=== PATIENT | female | born 1935 | race Caucasian/White ===

== ENCOUNTER 2020-10-06 20:12 | Observation (INO) | payer MEDICARE, OTHER, SELFPAY ==
--- NOTE | 2020-10-06 20:04 | ECG_ITS ---
APPROVED REPORT Exam: Resting ECG HR:52 bpm ECG Measurements Heart Rate 52 AXES MI 152 P 67 QRSd 90 QRS 23 QT 434 T 4 QTc 403 Conclusion Sinus bradycardia Nonspecific ST and T wave abnormality Abnormal ECG Electronically signed by : Ryan Allison MD 10/07/2020 08:57:32
[2020-10-06 20:24] VITALS: BP 171/77; PULSE 58; RESP 14; TEMP 36.3; O2SAT 94; BMI 25.8
--- NOTE | 2020-10-06 20:35 | PC.NURSE ---
C-Collar placed on arrival, Pt fell at home c/o lower back pain and has slight AMS
--- NOTE | 2020-10-06 20:37 | CT_ITS ---
PROCEDURE INFORMATION: Exam: CT Lumbar Spine Without Contrast Exam date and time: 10/06/2020 8:37 PM Age: 85 years old Clinical indication: Injury or trauma; Fall; Blunt trauma (contusions or hematomas); Injury date: 10/06/2020; Patient HX: Fell AMS back pain TECHNIQUE: Imaging protocol: Computed tomography images of the lumbar spine without contrast. Radiation optimization: All CT scans at this facility use at least one of these dose optimization techniques: automated exposure control; mA and/or kV adjustment per patient size (includes targeted exams where dose is matched to clinical indication); or iterative reconstruction. COMPARISON: No relevant prior studies available. FINDINGS: Vertebrae: Acute compression fracture involving the anterior superior endplate of L4 with mild height loss. Vertebral body height measures approximately 20 mm compared to 20/5 at the adjacent level. Stomach and bowel: Diverticulosis coli without evidence for diverticulitis. Soft tissues: Unremarkable. IMPRESSION: Acute compression fracture involving L4 with mild height loss.
--- NOTE | 2020-10-06 20:37 | CT_ITS ---
PROCEDURE INFORMATION: Exam: CT Cervical Spine Without Contrast Exam date and time: 10/06/2020 8:37 PM Age: 85 years old Clinical indication: Injury or trauma; Fall; Blunt trauma; Injury date: 10/06/2020; Patient HX: Fell AMS TECHNIQUE: Imaging protocol: Computed tomography images of the cervical spine without contrast. Radiation optimization: All CT scans at this facility use at least one of these dose optimization techniques: automated exposure control; mA and/or kV adjustment per patient size (includes targeted exams where dose is matched to clinical indication); or iterative reconstruction. COMPARISON: CT HEAD/BRAIN WO CON 10/06/2020 9:33 PM FINDINGS: Bones/joints: The facet joints demonstrate mild degenerative hypertrophy and sclerosis. Bones are osteopenic. There is no evidence of acute fracture. Discs/Spinal canal/Neural foramina: The cervical spine demonstrates mild degenerative changes at multiple levels. Disc space narrowing and bilateral neural foraminal narrowing noted at C5-C6 and C6-C7. Lungs: Lung apices are normal. Soft tissues: There are no soft tissue masses or fluid collections. IMPRESSION: 1. The cervical spine demonstrates mild degenerative changes at multiple levels. 2. No evidence of acute fracture.
--- NOTE | 2020-10-06 20:37 | CT_ITS ---
PROCEDURE INFORMATION: Exam: CT Head Without Contrast Exam date and time: 10/06/2020 8:37 PM Age: 85 years old Clinical indication: Injury or trauma; Fall; Blunt trauma (contusions or hematomas); Without loss of consciousness; Injury date: 10/06/2020; Injury details: Fell; Additional info: AMS TECHNIQUE: Imaging protocol: Computed tomography of the head without contrast. Radiation optimization: All CT scans at this facility use at least one of these dose optimization techniques: automated exposure control; mA and/or kV adjustment per patient size (includes targeted exams where dose is matched to clinical indication); or iterative reconstruction. COMPARISON: No relevant prior studies available. FINDINGS: Brain: Age-related atrophy and chronic white matter ischemic changes, with no evidence of an acute intracranial abnormality. No hemorrhage, mass effect or midline shift. Cerebral ventricles: No ventriculomegaly. Paranasal sinuses: Visualized sinuses are unremarkable. No fluid levels. Mastoid air cells: Visualized mastoid air cells are well aerated. Vasculature: The vasculature demonstrates diffuse mild atherosclerotic calcification. Bones/joints: No acute fracture. Soft tissues: No acute changes IMPRESSION: 1. Age-related atrophy and chronic white matter ischemic changes, with no evidence of an acute intracranial abnormality. 2. No hemorrhage, mass effect or midline shift.
--- NOTE | 2020-10-06 20:40 | XR_ITS ---
PROCEDURE INFORMATION: Exam: XR Chest Exam date and time: 10/06/2020 8:40 PM Age: 85 years old Clinical indication: Injury or trauma; Fall; Blunt trauma (contusions or hematomas); Injury date: 10/06/2020; Injury details: Fell TECHNIQUE: Imaging protocol: XR of the chest. Views: 4 or more views. COMPARISON: CT CERVICAL SPINE WO CON 10/06/2020 9:37 PM FINDINGS: Lungs: Streaky pulmonary opacities which are likely atelectatic. Pleural spaces: No pleural effusion. No pneumothorax. Heart/Mediastinum: Unremarkable. No cardiomegaly. Bones/joints: Degenerative changes of the shoulders. IMPRESSION: No acute cardiopulmonary process.
--- NOTE | 2020-10-06 20:40 | XR_ITS ---
PROCEDURE INFORMATION: Exam: XR Pelvis Exam date and time: 10/06/2020 8:40 PM Age: 85 years old Clinical indication: Injury or trauma; Fall; Blunt trauma (contusions or hematomas); Bilateral; Pelvic region; Injury date: 10/06/2020; Injury details: Fell backpain TECHNIQUE: Imaging protocol: XR pelvis. Views: 1 or 2 view. COMPARISON: CT LUMBAR SPINE WO CON 10/06/2020 9:40 PM FINDINGS: Bones/joints: Minimal height loss at L4. Bony pelvis is intact. No dislocation. Soft tissues: Unremarkable. IMPRESSION: No acute pelvic abnormality. CT lumbar spine dictated separately.
[2020-10-06 20:44] LABS: Microscopic, Urine URINE MICROSCOPIC (MICROSCOPIC)
[2020-10-06 20:46] LABS: Appearance,Urine CLEAR (Clear); Bilirubin,Urine Negative (Negative); Blood, Urine TRACE-I (Negative); Color,Urine YELLOW (Yellow); Glucose,Urine (UA) Negative (Negative); Ketones,Urine TRACE (Negative); Leukocyte Esterase,Urine Negative (Negative); Nitrate,Urine Negative (Negative); Protein,Urine TRACE (Negative); Urobilinogen,Urine 0.2 EU/dl (0.2)
[2020-10-06 20:53] LABS: Chloride 98 mmol/L (98-107); Sodium 141 mmol/L (136-145)
--- NOTE | 2020-10-06 20:53 | HMH.EDGENADL ---
ED Disposition Clinical Impression: Weakness, Lumbar compression fracture, Hypokalemia Disposition: Admitted As Inpatient Condition on Discharge: Good Instructions: DI for Altered Mental Status Referrals: Provider,Referral, [Referring] - - Critical Care Critical Care Time: No Attestation: On 10/06/20, the high probability of a clinically significant, sudden or life threatening deterioration of the following system(s) required my full and direct attention, intervention and personal management. The time I documented below is in addition to time spent performing reported procedures but includes the following listed in this critical care notation. Medical Decision Making - Medical Records MR Comment: L4 compression fracture which is acute. Patient has hypokalemia with potassium 2.9. Call Dr. Quach who is on-call for Dr. Dhillon who is on-call for Dr. Wilkins and he accepted the patient. - Rd Inquiry Pt receiving controlled substance: No Rd was queried for this patient: No Vital Signs: 10/06/20 20:24 Temperature 97.4 F L Temperature Source Rectal Pulse Rate [Right] 58 L Respiratory Rate 14 Blood Pressure [Right Arm] 171/77 H Blood Pressure Mean [Right Arm] 108 Blood Pressure Source [Right Arm] Automatic Cuff Blood Pressure Position [Right Arm] Supine 02 Sat by Pulse Oximetry 94 L Oxygen Delivery Method Room Air - Lab Data Lab Results 10/06/20 20:15: WBC 9.2, RBC 5.14, Hgb 15.2, Hct 44.9, MCV 87.5, MCH 29.5, MCHC 33.7, RDW 12.8, Plt Count 295, MPV 9.8, Neut % (Auto) 82.7 H, Lymph % (Auto) 10.1, Douglas % (Auto) 5.7, Eos % (Auto) 0.9, Baso % (Auto) 0.6, Neut # (Auto) 7.6, Lymph # (Auto) 0.9, Douglas # (Auto) 0.5, Eos # (Auto) 0.1, Baso # (Auto) 0.1 10/06/20 20:15: Sodium 141, Potassium 2.9 L*, Chloride 98, Carbon Dioxide 33 H, Anion Gap 12.9, BUN 15, Creatinine 0.80, Estimated Creat Clear 47, Estimated GFR 68, Est GFR ( Amer) 82, Glucose 141 H, Calcium 10.7 H, Total Bilirubin 1.0, AST 40 H, ALT 19, Alkaline Phosphatase 109, Total Protein 7.3, Albumin 4.2, Globulin 3.1, Albumin/Globulin Ratio 1.4 10/06/20 20:15: Urine Color Yellow, Urine Appearance Clear, Urine pH 6.0, Ur Specific [place] 1.020, Urine Protein Trace, Urine Glucose (UA) Negative, Urine Ketones Trace, Urine Blood Trace-i, Urine Nitrate Negative, Urine Bilirubin Negative, Urine Urobilinogen 0.2, Ur Leukocyte Esterase Negative, Urine RBC Occasional, Urine WBC 20-50, Ur Squamous Epith Cells 3-5, Urine Bacteria None 10/06/20 21:05: Total Creatine Kinase 25 L Result diagrams: 10/06/20 20:15 10/06/20 20:15 Orders (Tests/Meds): ORDERS Category Date Time Status Rapid PCR Covid and Flu A/B Stat Lab 10/06/20 22:33 Received Urine Culture Stat Micro 10/06/20 20:15 Received General Adult HPI - General Chief complaint: Altered Mental Status Stated complaint: [id number] back pain,dizzines,vomiting Time Seen by Provider: 10/06/20 20:53 Mode of Arrival: EMS Limitations: No Limitations Description of Symptoms (Recalled from ER Triage Doc. by RN): Pt was found down at home last known normal was 1100, Pt lives alone, she is able to tell us her name and where she is, but unable to answer any other question. Pt moves all extremities without drift PERRL 2mm. Pt only has a complaint of lower back pain. - History of Present Illness HPI narrative: Patient is 85-year-old female who lives by herself. She fell and complaining of low back pain. The EMS was called and she she was brought to the emergency room. There was no head bruises. She denied any headache. She denied any chest pain or abdominal pain. Pain of back pain this week and she called Dr. barrera primary care physician 3 days ago who prescribed muscle relaxant for her lower back pain. According to her son she has been in bed and has limited mobility due to increased low back pain. Today she was trying to reach her walker and she fell and she was laying on the floor. Her friend came
[2020-10-06 20:54] LABS: Basophils # 0.1 K/mm3 (0-0.2); Basophils % 0.6 % (0.1-2.0); Eosinophils # 0.1 K/mm3 (0.0-0.4); Eosinophils % 0.9 % (0.1-12.0); Hematocrit 44.9 % (37.0-47.0); Hemoglobin 15.2 g/dL (12.2-16.2); Lymphocytes # 0.9 K/mm3 (0.7-4.5); Lymphocytes % 10.1 % (10-50); Mean Corpuscular HGB Conc 33.7 g/dL (31.8-35.4); Mean Corpuscular Hemoglobin 29.5 pg (27.0-31.2); Mean Corpuscular Volume 87.5 fl (81-99); Mean Platelet Volume 9.8 fl (7.4-10.4); Monocytes # 0.5 K/mm3 (0.1-1.0); Monocytes % 5.7 % (1.7-9.3); Neutrophils # 7.6 K/mm3 (1.8-7.8); Neutrophils % 82.7 % (37.0-80.0); Platelet Count 295 K/mm3 (142-424); Red Blood Count 5.14 M/mm3 (4.20-5.40); Red Cell Distribution Width 12.8 % (11.5-17.5); White Blood Count 9.2 K/mm3 (4.8-10.8)
[2020-10-06 20:55] LABS: Blood Urea Nitrogen 15 mg/dl (7-17); Creatinine Clearance Estimated 47 mL/min (50-200); Estimated Glomerular Filt Rate 68 ml/min (>60); GFR (African American) 82 ML/MIN (>60); Potassium 2.9 mmoL/L (3.5-5.1)
[2020-10-06 20:56] LABS: Alanine Aminotransferase 19 U/L (12-78); Albumin Level 4.2 g/dl (3.5-5.0); Albumin/Globulin Ratio 1.4 (1.1-1.8); Alkaline Phosphatase 109 U/L (38-126); Anion Gap 12.9 mEq/L (5-15); Aspartate Amino Transferase 40 U/L (14-36); Calcium 10.7 mg/dl (8.4-10.2); Carbon Dioxide 33 mmol/L (22.0-30.0); Globulin 3.1 g/dL (1.3-3.2); Glucose 141 mg/dl (74-100); Total Protein,Serum 7.3 g/dl (6.3-8.2)
[2020-10-06 21:03] VITALS: BP 125/75; PULSE 55; RESP 14; O2SAT 95
[2020-10-06 21:08] LABS: RBC,Urine Occasional #/hpf (0-3); WBC,Urine 20-50 #/hpf (0-3)
[2020-10-06 21:27] LABS: Creatine Kinase 25 U/L (30-135)
[2020-10-06 22:30] VITALS: BP 146/61; PULSE 57; RESP 16; O2SAT 94
[2020-10-06 22:41] LABS: Coronavirus 19, PCR Not Detected (NotDetected); Influenza A, PCR Not Detected (NotDetected); Influenza B, PCR Not Detected (NotDetected)
[2020-10-06 23:00] VITALS: BP 147/68; PULSE 56; O2SAT 95
[2020-10-06 23:30] VITALS: BP 137/61; PULSE 53; RESP 16; O2SAT 96
[2020-10-07 00:13] VITALS: BP 129/56; PULSE 59; RESP 16; TEMP 36.3; O2SAT 96
[2020-10-07 00:20] VITALS: BMI 24.5
--- NOTE | 2020-10-07 00:20 | PC.NURSE ---
Patient arrived to floor via stretcher.
--- NOTE | 2020-10-07 00:24 | PC.NURSE ---
Pasword set by son is [phone]
--- NOTE | 2020-10-07 02:32 | PC.NURSE ---
Patient has altered mental status, attempted to call patients son to verify code status but they did not answer.
--- NOTE | 2020-10-07 02:56 | PC.NURSE ---
Patient was a new admit. Patient is alert to self and where she is. no complaints of pain. Patient has chavez and has good urine output. vss. no further concerns
[2020-10-07 04:00] VITALS: BMI 25.6
[2020-10-07 04:10] VITALS: BP 100/60
[2020-10-07 06:47] VITALS: BP 100/60; PULSE 63; RESP 16; TEMP 35.7; O2SAT 96
[2020-10-07 08:00] VITALS: BP 143/53; PULSE 53; RESP 20; TEMP 36.8; O2SAT 94
--- NOTE | 2020-10-07 08:18 | HMH.HP ---
*Admission Date: 10/07/20 *Chief complaint: Fall, back pain, confusion *History of present illness: 85-year-old female presented to the emergency department with family when she was found on the floor at home for unknown period of time. It had been at least 8 hours since anyone had had contact with her. Patient was confused. In the emergency department work-up revealed lumbar compression fracture after patient admitted to the low back pain. Patient was also found to be hypokalemic. The full story goes patient injured her back approximately a week ago when she bent over to pickle processor an object and when raising up experienced low back pain. Pain progressed as the week wore on and she began using a walker to assist with ambulation. Patient had been taking ibuprofen for her pain which she admits helped. She contacted her primary care physician midweek who prescribed a muscle relaxant (baclofen). Patient had recurrent fall yesterday. She was found to have altered mental status. Patient was admitted for IV fluids, potassium replacement, pain control, and observation of her mental status changes which are presumed to be due to to the muscle relaxant. This morning patient reports minimal pain while laying in bed. She is oriented to person and place but not time. Nursing staff reports patient's mental status is better than when she came in although still altered [facility] History I have reviewed the patient's past medical history: Yes Medical History: Reports:: Gastroesophageal Reflux Disease(GERD), Hypertension Denies:: Cancer, Diabetes Mellitus Type 1, Diabetes Mellitus Type 2, MRSA *Have you ever received a pneumonia vaccine?: No *Have you received a flu vaccine this season?: No Other Medical History: Reports: Sinus Problems Laterality Cases: Bilateral: Tonsillectomy Other Surgeries: Yes: Cholecystectomy, Hysterectomy-Total, Skin Cancer Excision, Other (r foot) - *Social History Smoking Status: Never smoker Alcohol Intake: never Alcohol Intake Frequency:: holidays/special occasions only *Occupational Status:: retired *Travel in the last 8 weeks: None Family Hx:: Cancer, Hypertension, Hyperlipidemia, Stroke (sister ), Heart Attack (father ) Review of Systems - Constitutional Reports lack of energy, Denies anorexia, Denies body ache(s) - Eyes Reports change in vision - ENT Denies difficulty swallowing, Denies ear discharge - *Cardiovascular Denies chest pain at rest, Denies shortness of breath with activity - *Respiratory Denies chest congestion, Denies cough - *Gastrointestinal Denies belching, Denies heartburn - *Genitourinary Denies painful urination - *Musculoskeletal Reports abnormal walking, Reports joint pain, Reports back pain - *Neurologic Reports abnormal walking, Reports confusion Meds Home Medications Medication Instructions Recorded Confirmed Type atenolol 50 mg-chlorthalidone 25 1 tab PO DAILY 09/12/19 10/07/20 History mg tablet vit 1 cap PO DAILY 09/12/19 10/07/20 History C,E,zinc,Wq-kcwpw-2-lutein-zeaxanthin 250 mg-2.5 mg-0.5 mg capsule Baclofen [Lioresal 10mg tablet] 10 mg PO Q6 PRN 10/06/20 10/07/20 History Chlordiazepoxide/Clidinium Br 1 each PO ACHS 10/06/20 10/07/20 History [Chlordiazepoxide-Clidinium Cap] Famotidine [Pepcid] 40 mg PO BID 10/06/20 10/07/20 History Linaclotide [Linzess] 290 mcg PO DAILY 10/06/20 10/07/20 History Amoxicillin [Amoxicillin 500mg 500 mg PO TID 10/07/20 10/07/20 History Cap] Amoxicillin/Potassium Clav 1 each PO BID 10/07/20 10/07/20 History [Amox-Clav 875-125 mg Tablet] Allergies Allergy/AdvReac Type Severity Reaction Status Date / Time No Known Allergies Allergy Verified 09/12/19 10:35 Exam Vital signs and Labs for Last 24 Hours: Temp Pulse Resp BP Pulse Ox 96.2 F L 63 16 100/60 L 96 10/07/20 06:47 10/07/20 06:47 10/07/20 06:47 10/07/20 06:47 10/07/20 06:47 Laboratory Results - last 24 hr 10/06/20 20:
--- NOTE | 2020-10-07 09:12 | HMH.PHAINT ---
MEDICATION RECONCILIATION COMPLETED ON PATIENT USING EXTERNAL FILL HISTORY FROM PHARMACY AND PATIENT'S OWN RX BOTTLES. -RICCI BENJAMIND
--- NOTE | 2020-10-07 09:13 | P.CONPHA_ITS ---
[facility] Pharmacy VTE Monitoring - Patient Demographics Admission date: 10/06/20 Report Date: 10/07/20 Time: 09:13 Allergies/Adverse Reactions: Patient Allergies No Known Allergies Allergy (Verified 09/12/19 10:35) Height: 1.68 m Weight: 72.235 kg Patient Problems: Current Active Problems Weakness (Acute) Lumbar compression fracture (Acute) Hypokalemia (Acute) Altered mental status (Acute) Side effect of medication (Acute) - VTE Risk Labs: VTE Related Lab Results Hgb 15.2 g/dL (12.2-16.2) 10/06/20 20:15 Hct 44.9 % (37.0-47.0) 10/06/20 20:15 Plt Count 295 K/mm3 (142-424) 10/06/20 20:15 BUN 15 mg/dl (7-17) 10/06/20 20:15 Creatinine 0.80 mg/dl (0.52-1.04) 10/06/20 20:15 Estimated Creat Clear 47 mL/min (50-200) 10/06/20 20:15 - Prophylaxis VTE Prophylaxis Ordered?: Yes Types of VTE Prophylaxis: TEDS Knee High Location of Applied Device: Bilateral Lower Extremeties
[2020-10-07 09:24] LABS: Chloride 104 mmol/L (98-107); Sodium 140 mmol/L (136-145)
[2020-10-07 09:27] LABS: Anion Gap 7.9 mEq/L (5-15); Blood Urea Nitrogen 17 mg/dl (7-17); Carbon Dioxide 31 mmol/L (22.0-30.0); Creatinine Clearance Estimated 47 mL/min (50-200); Estimated Glomerular Filt Rate 80 ml/min (>60); GFR (African American) 96 ML/MIN (>60); Glucose 120 mg/dl (74-100)
[2020-10-07 09:33] LABS: Potassium 2.9 mmoL/L (3.5-5.1)
[2020-10-07 15:07] VITALS: BP 173/65; PULSE 62; RESP 20; TEMP 36.8; O2SAT 97
--- NOTE | 2020-10-07 17:04 | PC.NURSE ---
PT IS SITTING UP IN THE CHAIR. PT STATES SHE IS MORE COMFORTABLE UP IN THE CHAIR THAN SHE IS IN THE BED. ALERT AND ORIENTED X3 BUT OCCASIONALLY HAS SOME ISSUES WITH FINDING HER WORDS. PT HAS BEEN EATING AND DRINKING WELL. TOLERATED GETTING UP TO THE CHAIR WITH 1 ASSIST. BATH AND BED CHANGE THIS SHIFT. BRUISING NOTED TO THE RT ELBOW. NEW IV ACCESS NOTED TO LAC. TEDS NOTED TO BLE. VSS. WILL CONTINUE TO MONITOR.
[2020-10-07 20:00] VITALS: BP 122/55; PULSE 64; RESP 16; TEMP 36.4; O2SAT 100
--- NOTE | 2020-10-08 02:42 | PC.NURSE ---
Patient is A&O, but still has trouble finding her words at times. No complaints of pain. Patient sat in chair for some of shift and then walked back to the bed x1 assist. Chase still in place and good urine output. No further concerns noted.
[2020-10-08 03:19] VITALS: BP 133/60; PULSE 62; RESP 16; TEMP 37.4; O2SAT 93
[2020-10-08 06:27] LABS: Chloride 106 mmol/L (98-107); Potassium 4.1 mmoL/L (3.5-5.1); Sodium 140 mmol/L (136-145)
[2020-10-08 06:30] LABS: Anion Gap 8.1 mEq/L (5-15); Blood Urea Nitrogen 16 mg/dl (7-17); Calcium 10.1 mg/dl (8.4-10.2); Carbon Dioxide 30 mmol/L (22.0-30.0); Creatinine Clearance Estimated 47 mL/min (50-200); Estimated Glomerular Filt Rate 95 ml/min (>60); GFR (African American) 115 ML/MIN (>60); Glucose 106 mg/dl (74-100)
--- NOTE | 2020-10-08 07:15 | HMH.ACPN2 ---
Internal Medicine - PN: Subj *Date: 10/08/20 *Time: 07:15 Interval history: No acute events over the last 24 hours. Patient's mental status has improved and she is now alert and oriented to person, place, time (month, day, year). She has been ambulating with standby assist. Back pain is minimal Exam Vital signs and Labs for Last 24 Hours: Temp Pulse Resp BP Pulse Ox 99.4 F 62 16 133/60 93 L 10/08/20 03:19 10/08/20 03:19 10/08/20 03:19 10/08/20 03:19 10/08/20 03:19 Laboratory Results - last 24 hr 10/07/20 09:06: Sodium 140, Potassium 2.9 L*, Chloride 104, Carbon Dioxide 31 H, Anion Gap 7.9, BUN 17, Creatinine 0.70, Estimated Creat Clear 47, Estimated GFR 80, Est GFR ( Amer) 96, Glucose 120 H, Calcium 10.0 10/08/20 05:45: Sodium 140, Potassium 4.1 D, Chloride 106, Carbon Dioxide 30, Anion Gap 8.1, BUN 16, Creatinine 0.60, Estimated Creat Clear 47, Estimated GFR 95, Est GFR ( Amer) 115, Glucose 106 H, Calcium 10.1 I & O for Last 24 hours: Intake & Output 10/05/20 10/06/20 10/07/20 10/08/20 11:59 11:59 11:59 11:59 Intake Total 344 / 344 1390 / 1390 Output Total 450 / 450 550 / 550 Balance -106 / -106 840 / 840 Weight 159 lb 4 oz Microbiology Reports for the Last 24 Hours: Microbiology 10/06/20 20:15 Urine,Clean Catch Urine Culture - Preliminary NO GROWTH AFTER 24 HOURS - Constitutional no acute distress - *Routine Respiratory Exam Present: CTA bilaterally - *Routine Cardiovascular Exam Present: RRR Assessment and Plan (1) Altered mental status Status: Resolved Qualifiers: Altered mental status type: disorientation Qualified Code(s): R41.0 - Disorientation, unspecified Category: Medical Code(s): R41.82 - Altered mental status, unspecified (2) Side effect of medication Status: Acute Category: Medical Code(s): T88.7XXA - Unspecified adverse effect of drug or medicament, initial encounter (3) Hypokalemia Status: Resolved Category: Medical Code(s): E87.6 - Hypokalemia (4) Lumbar compression fracture Status: Acute Category: Medical Code(s): S32.000A - Wedge compression fracture of unspecified lumbar vertebra, initial encounter for closed fracture (5) Weakness Status: Acute Category: Medical Code(s): R53.1 - Weakness - Assessment and plan all Dx Assessment and Plan for all problems:: 1. PT eval today to assess patient's level of function and needs with her lumbar compression fracture. As much as the patient has improved since yesterday I expect that patient will be discharged from the hospital later this afternoon with tentative plan to live with her son after discharge.
--- NOTE | 2020-10-08 07:16 | HMH.DCSUM ---
General - General Admission date:: 10/07/20 Discharge date: 10/08/20 HPI HPI: 85-year-old female presented to the emergency department with family when she was found on the floor at home for unknown period of time. It had been at least 8 hours since anyone had had contact with her. Patient was confused. In the emergency department work-up revealed lumbar compression fracture after patient admitted to the low back pain. Patient was also found to be hypokalemic. The full story goes patient injured her back approximately a week ago when she bent over to pickling grader an object and when raising up experienced low back pain. Pain progressed as the week wore on and she began using a walker to assist with ambulation. Patient had been taking ibuprofen for her pain which she admits helped. She contacted her primary care physician midweek who prescribed a muscle relaxant (baclofen). Patient had recurrent fall yesterday. She was found to have altered mental status. Patient was admitted for IV fluids, potassium replacement, pain control, and observation of her mental status changes which are presumed to be due to to the muscle relaxant. This morning patient reports minimal pain while laying in bed. She is oriented to person and place but not time. Nursing staff reports patient's mental status is better than when she came in although still altered Hospital Course Hospital Course: Hospital course per patient diagnoses: 1. Altered mental status. Patient's altered mental status was primarily due to use of muscle relaxant (baclofen) and likely contributed to by mild hypokalemia. Any sedating medicines were held. Patient's back pain was treated with ibuprofen. Potassium was replaced with both oral and IV potassium. By the morning of October 08 patient was alert and oriented x3. Mental status had returned to baseline. 2. Patient had mild hypokalemia on admission from use of Tenoretic. She was started on potassium supplementation and this will be continued at discharge. 3. Patient had a newly diagnosed acute lumbar compression fracture at L4. Patient had PT evaluation while hospitalized. Patient was able to ambulate with standby assist. Patient's altered mental status and hypokalemia corrected quickly. Patient was discharged to the care of her son. Objective Vital signs: Temp Pulse Resp BP Pulse Ox 99.4 F 62 16 133/60 93 L 10/08/20 03:19 10/08/20 03:19 10/08/20 03:19 10/08/20 03:19 10/08/20 03:19 no acute distress - *Routine Respiratory Exam Present: CTA bilaterally - *Routine Cardiovascular Exam Present: RRR - *Routine Abdominal Exam Present: soft, normoactive bowel sounds. Absent: tenderness Results Labs on day of discharge: Labs from last 24 hours 10/08/20 10/07/20 05:45 09:06 Sodium 140 140 Potassium 4.1 D 2.9 L* Chloride 106 104 Carbon Dioxide 30 31 H Anion Gap 8.1 7.9 BUN 16 17 Creatinine 0.60 0.70 Estimated Creat Clear 47 47 Estimated GFR 95 80 Est GFR ( Amer) 115 96 Glucose 106 H 120 H Calcium 10.1 10.0 Preliminary micro results at discharge 10/06/20 20:15 Urine Culture - Preliminary Urine,Clean Catch NO GROWTH AFTER 24 HOURS DS: Diagnosis - Discharge Diagnosis (1) Altered mental status Status: Resolved (2) Side effect of medication Status: Acute (3) Hypokalemia Status: Resolved (4) Lumbar compression fracture Status: Acute (5) Weakness Status: Acute Discharge Plan - Patient Discharge Instructions ACTIVITY: Continue current activity DIET: continue same diet Patient Instructions: DI for Vertebral Fracture, DI for Hypokalemia - Follow up Plan Disposition: Home, Self-Care Condition at discharge:: Improved Home Medications: Home Medications Medication Instructions Recorded Confirmed Type atenolol 50 mg-chlorthalidone 25 1 tab PO DAILY 09/12/19 10/07/20 History mg tablet Baclofe
--- NOTE | 2020-10-08 07:43 | SW/DCPLANNER ---
PATIENT PRESENTED INTO THE HOSPITAL AFTER FAMILY FOUND PATIENT ON THE FLOOR AT HOME FOR AN UNDETERMINED AMOUNT OF TIME.. SHE ADMITTED WITH A FALL, BACK PAIN AND CONFUSION... PATIENT HAS CLEARED AND APPEARS TO BE DOING WELL THIS MORNING.. DR MARIN HAS ORDERED A PT/OT CONSULT AND HER PLAN IS TO GO HOME WITH HER SON AND DAUGHTER IN [place] LATER IN THE AFTERNOON.. DEPENDING UPON WHAT PT/OT RUFINA INDICATES, I WILL SET PATIENT UP WITH HOME HEALTH WHEN SHE GOES TO HER SONS HOUSE IN [place]..
[2020-10-08 08:00] VITALS: BP 143/67; PULSE 63; RESP 18; TEMP 36.7; O2SAT 95
--- NOTE | 2020-10-08 09:54 | HMH.PTEV ---
Physical Therapy Evaluation Rehab PT IP Evaluation Start: 10/07/20 08:24 Freq: ONCE Status: Active Protocol: Document 10/08/20 09:22 PHORANDERS (Rec: 10/08/20 09:53 PHORNE [id number]) Subjective/History History History Pt is 85 year old female admitted to [facility] for L4 compression fracture secondary to fall at home. Subjective Subjective Pt reported minimal pain in her back this morning. Pt stated she lives alone in one level home with ramp access to front door. Pt stated she will be staying with her son for a few days after d/c from [facility]. Pt reported no prior use of AD before admittance to [facility] . Eval completed by EDUARDO Heard. Rehab PT IP Eval Objective Appearance Patient Behavior Appropriate,Cooperative Patient Orientation Place,Name,Birthday,Year Difficulty following instructions none Speech Pattern Clear,Appropriate,Coherent Ambulation Patient Able to Ambulate Yes Ambulation Observation IP General Gait Pattern Observation Wide Based Gait,Shuffling Step Ambulation Distance (feet) 25 Ambulation Assistive Device Rolling Walker Ambulation Ability Contact Guard/Hand Hold Balance Ability to Arise Able, uses arms to help Sitting Balance Steady, safe Standing Balance Steady, wide stance Dynamic Sitting Balance Ability Good Dynamic Standing Balance Ability Good Transfers Sit to Stand Chair Transfer Ability Contact Guard/Hand Hold ROM All Extremities PT ROM Status WFL MMT All Extremities PT MMT WFL Rehab PT IP prob,goals,plan Problems Date of Evaluation: 10/08/20 PT IP Problems Transfers,Gait,Balance,Safety Rehab Potential Rehab Potential Good Equipment Needs Assistive Devices Rolling / Wheeled Walker Plan PT Intervention Plan Transfers,Gait,Balance,Safety, Therapeutic Exercise PT Plan Frequency BID Duration LOS Discharge Goals Bed Transfer Ability Contact Guard/Hand Hold Sit to Stand Chair Transfer Ability Contact Guard/Hand Hold Ambulation Assistive Device Rolling Walker Ambulation Distance (feet) 40 Discharge Plan PT Discharge Plan Pt would be safe to d/c home with family assistance once
--- NOTE | 2020-10-08 13:50 | PC.NURSE ---
SON REQUESTED FOR PT TO HAVE HOME HEALTH SERVICES WHEN SHE RETURNS BACK HOME. PT AND DAUGHTER IN LAW WAS GIVEN INTRUCTIONS TO CALL PCP OFFICE WHEN PT RETURNS HOME TO SEE ABOUT GETTING EVERYTHING SET UP FOR HOME HEALTH. MAIKEL NEWBERRY NOTIFIED.
--- NOTE | 2020-10-11 10:49 | SW/DCPLANNER ---
RECEIVED A CALL THIS MORNING FROM THE SON OF THIS PATIENT...MR MARIE STATING HIS MOTHER WAS RECENTLY A PATIENT HERE AT [facility] AN DISCHARGED TO GO HOME WITH SON THAT LIVES IN [facility]... SON STATED SHE IS RETURNING BACK TO HER HOME HERE IN [facility] (THURSDAY) AND WISHES TO HAVE HOME HEALTH SERVICES.. THEY HAVE CHOSEN [facility] THEIR AGENCY, I HAVE FAXED REFERRAL TO [facility] TO CONTACT PATIENT AND CAREGIVER TO START SERVICES ONCE SHE IS HOME AND SETTLED. SHE WILL RECEIVE HOME HEALTH PT/OT AND [facility]....
== END 2020-10-08 13:30 | disposition home or self-care (01) ==
LOC: ER 22:59 → 2ND 23:26
PROVIDERS: Admitting Provider Emergency Medicine; Emergency Provider Internal Medicine; PCP Family Medicine; Visit Provider Family Medicine
DX: S32.000A Wedge compression fracture of unspecified lumbar vertebra, initial encounter for closed fracture (principal); Z20.822 Contact with and (suspected) exposure to COVID-19; Z91.81 History of falling; R29.6 Repeated falls; K21.9 Gastro-esophageal reflux disease without esophagitis; I10 Essential (primary) hypertension; E87.6 Hypokalemia; R53.1 Weakness; W01.0XXA Fall on same level from slipping, tripping and stumbling without subsequent striking against object, initial encounter; Y92.019 Unspecified place in single-family (private) house as the place of occurrence of the external cause
CPT/HCPCS: G0378; 36415; 70450; 71045; 72125; 72131; 72170; 80048; 80053; 81001; 82550; 85025; 87086; 93005; 97162; 99285; U0003

== ENCOUNTER → 2020-12-05 12:31 | Outpatient (CLI) | payer MEDICARE, OTHER, SELFPAY ==
--- NOTE | 2020-12-05 12:37 | XR_ITS ---
PROCEDURE: XR LUMBAR SPINE MIN 4V CLINICAL INDICATION: LOW BACK PAIN COMPARISON: CT CT LUMBAR SPINE WO CON from 10/06/2020 FINDINGS: There is normal alignment. There is multilevel degenerative disc disease from L1-S1. Concave deformity is present along the superior endplate of L4 with loss of height centrally approximately 40 percent and appears slightly increased compared to the previous CT scan of 10/06/2020. Prominent anterior spurs present superiorly at L4. No retropulsion. Generalized vascular calcification. IMPRESSION: Slight increase include concave deformity of the superior endplate of L4 vertebral body with prominent anterior spur Dictated by: Chirag Kiser MD 12/05/2020 17:19 Chirag Kiser MD in [place] 12/05/2020 17:19
== END ==
PROVIDERS: PCP Family Medicine; Visit Provider Family Medicine
DX: M54.50 Low back pain, unspecified (principal)
CPT/HCPCS: 72110

== ENCOUNTER 2021-05-01 13:00 | Outpatient (RCR) | payer MEDICARE, OTHER, SELFPAY | END 2021-05-01 13:05 | disposition home or self-care (01) | LOC: PT 13:00 | PROVIDERS: PCP Family Medicine | DX: M54.50 Low back pain, unspecified (principal) | CPT/HCPCS: 97010; 97014; 97035; 97110; 97112; 97163; 97164; G0283 ==

== ENCOUNTER → 2021-06-24 08:37 | Outpatient (CLI) | payer MEDICARE, OTHER, SELFPAY ==
[2021-06-24 10:03] LABS: Blood Urea Nitrogen 20 mg/dl (7-17); Estimated Glomerular Filt Rate 80 ml/min (>60); GFR (African American) 96 ML/MIN (>60)
== END ==
PROVIDERS: PCP Family Medicine; Visit Provider Family Medicine
DX: R91.1 Solitary pulmonary nodule (principal)
CPT/HCPCS: 36415; 82565; 84520

== ENCOUNTER → 2021-06-25 13:08 | Outpatient (CLI) | payer MEDICARE, OTHER, SELFPAY ==
--- NOTE | 2021-06-25 13:12 | CT_ITS ---
FINAL REPORT TECHNIQUE: Axial images through the chest were performed by computed tomography before and after the administration of IV contrast. This study was performed with techniques to keep radiation doses as low as reasonably achievable, (ALARA). Individualized dose reduction techniques using automated exposure control or adjustment of mA and/or kV according to the patient's size were employed. CLINICAL HISTORY: LESION OF LEFT LUNG FINDINGS: CT CHEST W & W/O CONTRAST There is no axillary adenopathy. There is no hilar or mediastinal adenopathy. The heart size is normal. There is no pericardial or pleural effusion. Limited images of the upper abdomen demonstrate postoperative changes from cholecystectomy. There is moderate biliary ductal dilatation favoring post cholecystectomy change. There is a 14 mm spiculated nodule in the posterior left upper lobe. There are several other smaller nodules including a 5 mm nodule in the right lower lobe. There is mild pulmonary scarring. IMPRESSION: 14 mm spiculated nodule in the posterior left upper lobe. Recommend PET-CT for further evaluation. Reviewed, Interpreted and Dictated by Tra Beaver III, MD Transcribed by Virginia Figueroa Authenticated by Tra Beaver III, MD on 06/25/2021 03:56:10 PM [facility]
== END ==
PROVIDERS: PCP Family Medicine; Visit Provider Family Medicine
DX: R91.1 Solitary pulmonary nodule (principal)
CPT/HCPCS: 71270; Q9967

== ENCOUNTER → 2022-12-08 14:58 | Outpatient (REF) | payer MEDICARE, OTHER, SELFPAY ==
[2022-12-08 15:21] LABS: Basophils % 0.5 % (0.1-2.0); Eosinophils # 0.2 K/mm3 (0.0-0.4); Hematocrit 37.7 % (37.0-47.0); Lymphocytes # 1.1 K/mm3 (0.7-4.5); Mean Corpuscular HGB Conc 34.4 g/dL (31.8-35.4); Mean Corpuscular Hemoglobin 31.2 pg (27.0-31.2); Mean Corpuscular Volume 90.8 fl (81-99); Mean Platelet Volume 9.8 fl (7.4-10.4); Monocytes # 0.4 K/mm3 (0.1-1.0); Monocytes % 7.2 % (1.7-9.3); Neutrophils # 4.3 K/mm3 (1.8-7.8); Neutrophils % 71.3 % (37.0-80.0); Platelet Count 229 K/mm3 (142-424); Red Blood Count 4.15 M/mm3 (4.20-5.40)
== END ==
LOC: LAB.DROPOF 14:58
PROVIDERS: Nurse Practitioner Family; Visit Provider Internal Medicine Adolescent Medicine
DX: R77.8 Other specified abnormalities of plasma proteins (principal); R71.8 Other abnormality of red blood cells
CPT/HCPCS: 85025

== ENCOUNTER → 2023-01-17 08:28 | Outpatient (CLI) | payer MEDICARE, OTHER, SELFPAY ==
--- NOTE | 2023-01-17 08:33 | MR_ITS ---
PROCEDURE INFORMATION: Exam: MR Head Without and With Contrast Exam date and time: 01/17/2023 8:46 AM Age: 87 years old Clinical indication: Altered mental status/memory loss; Confusion or disorientation; Additional info: Mental status changes TECHNIQUE: Imaging protocol: Magnetic resonance imaging of the head without and with contrast. 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 No acute infarct. No hemorrhage. Stable involutional changes of the brain. No mass effect. Cerebral ventricles: Stable ventricular size. No ventriculomegaly. Bones/joints: Unremarkable. Paranasal sinuses: Normal as visualized. No acute sinusitis. Mastoid air cells: Normal as visualized. No mastoid effusion. Orbital cavities: Unremarkable. Soft tissues: Unremarkable. IMPRESSION: No acute intracranial abnormality.
== END ==
PROVIDERS: PCP Family Medicine; Visit Provider Nurse Practitioner Family
DX: R41.0 Disorientation, unspecified (principal)
CPT/HCPCS: 70553; A9576

== ENCOUNTER 2023-08-07 12:19 | Outpatient (CLI) | payer MEDICARE, OTHER, SELFPAY ==
[2023-08-07 12:30] LABS: Microscopic, Urine URINE MICROSCOPIC (MICROSCOPIC)
[2023-08-07 12:39] LABS: Appearance,Urine CLEAR (Clear); Bilirubin,Urine Negative (Negative); Blood, Urine Negative (Negative); Color,Urine YELLOW (Yellow); Glucose,Urine (UA) Negative (Negative); Ketones,Urine Negative (Negative); Leukocyte Esterase,Urine TRACE (Negative); Nitrate,Urine Negative (Negative); Protein,Urine Negative (Negative); Specific Gravity, Urine 1.025 (1.005-1.030); Urobilinogen,Urine 0.2 EU/dl (0.2)
[2023-08-07 12:55] LABS: WBC,Urine Occasional #/hpf (0-3)
[2023-08-07 13:58] LABS: Basophils # 0.1 K/mm3 (0-0.2); Eosinophils # 0.2 K/mm3 (0.0-0.4); Hematocrit 41.1 % (37.0-47.0); Hemoglobin 12.9 g/dL (12.2-16.2); Lymphocytes # 1.3 K/mm3 (0.7-4.5); Lymphocytes % 26.2 % (10-50); Mean Corpuscular HGB Conc 31.4 g/dL (31.8-35.4); Mean Corpuscular Hemoglobin 29.4 pg (27.0-31.2); Mean Corpuscular Volume 93.5 fl (81-99); Mean Platelet Volume 9.3 fl (7.4-10.4); Monocytes # 0.5 K/mm3 (0.1-1.0); Monocytes % 9.8 % (1.7-9.3); Platelet Count 207 K/mm3 (142-424); Red Cell Distribution Width 14.2 % (11.5-17.5); White Blood Count 5.1 K/mm3 (4.8-10.8)
[2023-08-07 14:47] LABS: Anion Gap 9.5 mEq/L (5-15); Blood Urea Nitrogen 18 mg/dl (7-17); Calcium 10.2 mg/dl (8.4-10.2); Carbon Dioxide 33 mmol/L (22.0-30.0); Chloride 101 mmol/L (98-107); Estimated Glomerular Filt Rate 79 ml/min (>60); GFR (African American) 96 ML/MIN (>60); Glucose 82 mg/dl (74-100); Potassium 3.5 mmoL/L (3.5-5.1); Sodium 140 mmol/L (136-145)
== END 2023-08-07 23:59 | disposition home or self-care (01) ==
LOC: LAB.DROPOF 12:21
PROVIDERS: PCP Internal Medicine Adolescent Medicine; Visit Provider Internal Medicine Adolescent Medicine
DX: N39.0 Urinary tract infection, site not specified (principal); I10 Essential (primary) hypertension; J30.89 Other allergic rhinitis; R26.2 Difficulty in walking, not elsewhere classified
CPT/HCPCS: 80048; 81001; 85025; 87086

== ENCOUNTER 2024-03-19 20:34 | Outpatient (CLI) | payer MEDICARE, OTHER, SELFPAY ==
[2024-03-19 21:43] LABS: Microscopic, Urine URINE MICROSCOPIC (MICROSCOPIC)
[2024-03-19 22:18] LABS: Appearance,Urine CLEAR (Clear); Bilirubin,Urine Negative (Negative); Blood, Urine Negative (Negative); Color,Urine YELLOW (Yellow); Glucose,Urine (UA) Negative (Negative); Ketones,Urine Negative (Negative); Leukocyte Esterase,Urine 1+ (Negative); Nitrate,Urine Negative (Negative); PH,Urine 5.5 (5.0-8.5); Protein,Urine Negative (Negative); Specific Gravity, Urine >= 1.030 (1.005-1.030); Urobilinogen,Urine 0.2 EU/dl (0.2)
[2024-03-19 22:28] LABS: Bacteria,Urine 1+ /lpf; Squamous Epithelial Cell,Urine Occasional #/hpf (0-5)
== END 2024-03-19 23:59 | disposition home or self-care (01) ==
LOC: LAB.DROPOF 20:37
PROVIDERS: PCP Internal Medicine Adolescent Medicine; Visit Provider Internal Medicine Adolescent Medicine
DX: N39.0 Urinary tract infection, site not specified (principal)
CPT/HCPCS: 81001; 87086; 87088; 87186

== ENCOUNTER 2024-03-20 17:10 | Outpatient (CLI) | payer MEDICARE, OTHER, SELFPAY ==
[2024-03-20 17:39] LABS: Basophils % 0.5 % (0.1-2.0); Eosinophils # 0.1 K/mm3 (0.0-0.4); Eosinophils % 3.8 % (0.1-12.0); Hematocrit 40.1 % (37.0-47.0); Hemoglobin 13.3 g/dL (12.2-16.2); Lymphocytes # 1.1 K/mm3 (0.7-4.5); Lymphocytes % 30.1 % (10-50); Mean Corpuscular HGB Conc 33.2 g/dL (31.8-35.4); Mean Corpuscular Hemoglobin 29.6 pg (27.0-31.2); Mean Corpuscular Volume 89.3 fl (81-99); Mean Platelet Volume 10.6 fl (7.4-10.4); Monocytes # 0.5 K/mm3 (0.1-1.0); Monocytes % 14.4 % (1.7-9.3); Neutrophils # 1.9 K/mm3 (1.8-7.8); Neutrophils % 50.9 % (37.0-80.0); Platelet Count 195 K/mm3 (142-424); Red Blood Count 4.49 M/mm3 (4.20-5.40); Red Cell Distribution Width 12.2 % (11.5-17.5); White Blood Count 3.7 K/mm3 (4.8-10.8)
[2024-03-20 18:38] LABS: Blood Urea Nitrogen 21 mg/dl (7-17); Calcium 9.9 mg/dl (8.4-10.2); Carbon Dioxide 29 mmol/L (22.0-30.0); Chloride 104 mmol/L (98-107); Estimated Glomerular Filt Rate 68 ml/min (>60); GFR (African American) 82 ML/MIN (>60); Glucose 95 mg/dl (74-100); Sodium 139 mmol/L (136-145)
== END 2024-03-20 23:59 | disposition home or self-care (01) ==
LOC: LAB.DROPOF 17:12
PROVIDERS: PCP Internal Medicine Adolescent Medicine; Visit Provider Internal Medicine Adolescent Medicine
DX: J30.9 Allergic rhinitis, unspecified (principal); F03.90 Unspecified dementia, unspecified severity, without behavioral disturbance, psychotic disturbance, mood disturbance, and anxiety; I10 Essential (primary) hypertension; R26.2 Difficulty in walking, not elsewhere classified
CPT/HCPCS: 80048; 85025

== ENCOUNTER 2024-04-28 16:19 | Observation (INO) | payer MEDICARE, OTHER, SELFPAY ==
[2024-04-28] VITALS (10 sets, daily range): BP systolic 134–175; BP diastolic 55–74; PULSE 63–79; RESP 16–20; TEMP 36.7; O2SAT 91–99; BMI 23.1
--- NOTE | 2024-04-28 16:20 | HMH.EDGENADL ---
Discharge Plan Disposition Patient Disposition: Admitted Chief Complaint: Abdominal Pain Clinical Impressions Clinical Impression: Acute hypoxemic respiratory failure, Abdominal pain, Left lower lobe pneumonia Discharge ED Provider: Stefan Pinto General Adult HPI <Esperanza Martinez APRN - Last Filed: 04/28/24 21:46> General Chief complaint: Abdominal Pain Stated complaint: Abd. Pain Time Seen by Provider: 04/28/24 16:29 History of Present Illness HPI narrative: Patient is a 88 year old female PMHx HTN who presents to the ED for abdominal pain x3-4 days. Pt states she is having dysuria and lower back pain as well. Is having normal BM and passing gas. Reports no difficulties with food or fluids. Related Data Home Medications ?Medication ?Instructions ?Recorded ?Confirmed famotidine 40 mg tablet 40 mg PO BID GERD 10/06/20 04/28/24 atenolol 50 mg tablet See Rx Instructions .Route .COMPLEX 04/28/24 04/28/24 atorvastatin 10 mg tablet 10 mg PO DAILY 04/28/24 04/28/24 brexpiprazole 1 mg tablet (Rexulti) 2 mg PO DAILY 04/28/24 04/28/24 famotidine 40 mg tablet 40 mg PO DAILY 04/28/24 04/28/24 furosemide 20 mg tablet 20 mg PO DAILY 04/28/24 04/28/24 magnesium hydroxide 400 mg/5 mL 400 mg PO DAILY 04/28/24 04/28/24 oral suspension (Milk of Magnesia) potassium chloride 10 mEq 10 meq PO DAILY 04/28/24 04/28/24 capsule,extended release potassium chloride 20 mEq 10 meq PO DAILY 04/28/24 04/28/24 tablet,extended release(part/cryst) Allergies Allergy/AdvReac Type Severity Reaction Status Date / Time No Known Allergies Allergy Verified 07/09/22 13:09 PFSH <Esperanza Martinez APRN - Last Filed: 04/28/24 21:46> [facility] Disclaimer: The information contained in this section may have been updated after the patient was seen, as this information can be updated by other users. Social History Smoking Status: Never smoker alcohol intake: never current occupational status: retired Travel in the last 8 weeks: None Have you lived/traveled outside [place] in past 30 days?: No Contact w/someone who lives/traveled outside US past 30 days?: No Exposure to someone with infectious disease in past 14 days?: No Do you have a fever (greater than 100.4 F or 38 C)?: No Have you tested positive for COVID-19: No Exposed to someone with COVID-19 in past 14 days?: No Do you have a sore throat?: No Do you have a cough?: No Do you have any weakness?: No Do you have any diarrhea?: No Are you experiencing any unusual bleeding?: No Do you have any muscle aches/pain?: No Do you have any abdominal pain?: Yes Are you experiencing loss of taste or smell?: No Other Medical History Have you received the Flu Vaccine for this season: No Have you received the Pneumonia Vaccine: No <Esperanza Martinez APRN - Last Filed: 04/28/24 21:46> ROS Obtained: Yes Systems reviewed as appropriate & no additional complaints except as documented Physical Exam <Esperanza Martinez APRN - Last Filed: 04/28/24 21:46> General General appearance: alert and in no apparent distress Head Head exam: atraumatic and normocephalic Eye Eye exam: Present normal appearance and PERRL ENT ENT exam: Present normal exam Neck Neck exam: Present normal inspection Chest Chest inspection: Present normal inspection and symmetric chest wall rise; Absent tenderness Respiratory Respiratory exam: Present normal lung sounds bilaterally Cardiovascular Cardiovascular exam: Present regular rate Abdominal Exam Abdominal exam: Present soft, tenderness (RUQ RLQ abd tenderness upon palpation ) and normal bowel sounds Extremities Exam Extremities exam: Present normal inspection and full ROM Back Exam Back exam: Present normal inspection and full ROM Neurological Exam Neurological exam: Present alert and oriented X3 Psychiatric Psychiatric exam: Present normal affect and normal mood Skin Skin exam: Present warm and dry Medical Decision Making <Esperanza Martinez APRN - Last Filed: 04/28/24 21:46> Medical Records Screening: Per USPSTF and CDC recommendations, given the prevalence of disease in our region, it is our hospital?s policy to screen for HIV and viral Hepatitis for all patients aged 18 and over and those with ongoing risk factors. Rd Inquiry Pt receiving controlled substance: No Rd was queried for this patient: No Vital Signs: 04/28/24 16:16 04/28/24 16:19 04/28/24 16:30 Temperature 98.0 F Temperature Source Oral Pulse Rate 69 68 Pulse Rate [Radial] 66 Respiratory Rate 16 Blood Pressure 175/74 H 169/64 H Blood Pressure [Right Arm] 175/74 H Blood Pressure Mean 95 99 Blood Pressure Mean [Right Arm] 107 Blood Pressure Source [Right Arm] Automatic Cuff Blood Pressure Position [Right Arm] Sitting 02 Sat by Pulse Oximetry 94 L 95 93 L Oxygen Delivery Method Room Air Oxygen Flow Rate (LPM) 04/28/24 17:00 04/28/24 17:30 04/28/24 18:00 Temperature Temperature Source Pulse Rate 65 73 63 Pulse Rate [Radial] Respiratory Rate Blood Pressure 168/71 H 134/55 L 171/73 H Blood Pressure [Right Arm] Blood Pressure Mean 103 97 Blood Pressure Mean [Right Arm] Blood Pressure Source [Right Arm] Blood Pressure Position [Right Arm] 02 Sat by Pulse Oximetry 92 L 91 L 93 L Oxygen Delivery Method Room Air Oxygen Flow Rate (LPM) 04/28/24 19:00 04/28/24 19:30 04/28/24 20:55 Temperature Temperature Source Pulse Rate 70 66 79 Pulse Rate [Radial] Respiratory Rate 16 17 Blood Pressure 165/66 H 142/68 H 163/69 H Blood Pressure [Right Arm] Blood Pressure Mean Blood Pressure Mean [Right Arm] Blood Pressure Source [Right Arm] Blood Pressure Position [Right Arm] 02 Sat by Pulse Oximetry 99 98 96 Oxygen Delivery Method Nasal Cannula Oxygen Flow Rate (LPM) 2 Lab Data Lab Results 04/28/24 16:15: WBC 7.5, RBC 4.51, Hgb 13.2, Hct 40.6, MCV 90.0, MCH 29.3, MCHC 32.5, RDW 12.4, Plt Count 199, MPV 10.4, Neut % (Auto) 77.7, Lymph % (Auto) 12.2, [place] % (Auto) 7.6, Eos % (Auto) 1.3, Baso % (Auto) 0.7, Neut # (Auto) 5.8, Lymph # (Auto) 0.9, [place] # (Auto) 0.6, Eos # (Auto) 0.1, Baso # (Auto) 0.1, Sodium 135 L, Potassium 4.6, Chloride 103, Carbon Dioxide 21 L, Anion Gap 15.6 H, BUN 13, Creatinine 0.50 L, Estimated Creat Clear 40, Estimated GFR 116, Est GFR ( Amer) 141, Glucose 72 L, Calcium 10.0, Total Bilirubin 1.7 H, AST 43 H, ALT 18, Alkaline Phosphatase 107, Troponin I < 0.01, Total Protein 6.3, Albumin 4.0, Globulin 2.3, Albumin/Globulin Ratio 1.7, HCV Ab TRACY w/Rflx PCR Qn Negative, HIV Ag/Ab Combo Qual Negative 04/28/24 16:16: Urine Color Yellow, Urine Appearance Clear, Urine pH 5.0, Ur Specific [place] >= 1.030, Urine Protein Trace A, Urine Glucose (UA) Negative, Urine Ketones Large, Urine Blood 2+ A, Urine Nitrate Negative, Urine Bilirubin Negative, Urine Urobilinogen 0.2, Ur Leukocyte Esterase Negative, Urine RBC 10-20, Urine WBC Occasional, Ur Squamous Epith Cells Occasional, Amorphous Sediment 1+, Urine Bacteria 1+ 04/28/24 16:46: Lactate 0.8 04/28/24 19:30: Troponin I 0.02 04/28/24 16:15 04/28/24 16:15 Orders (Tests/Meds): ED MEDICATIONS Generic Name Dose Route Start Last Admin Trade Name Freq PRN Reason Stop Dose Admin Acetaminophen 650 mg 04/28/24 22:04 Acetaminophen 325mg Tab PO 05/28/24 22:03 Q4HP PRN Fever or Mild Pain (1-3) Hydrocodone Bitart/Acetaminophen 1 tab 04/28/24 22:04 Hydrocodone/Apap 5/325 Mg Tablet PO 05/28/24 22:03 Q4HP PRN Mild to Moderate Pain (1-6) Azithromycin 250 mg 04/29/24 09:00 Azithromycin 250mg Tablet PO 05/09/24 08:59 DAILY ANDREW Enoxaparin Sodium 40 mg 04/29/24 09:00 Enoxaparin 40mg/0.4ml Syringe SUBCUT 05/29/24 08:59 DAILY ANDREW Furosemide 40 mg 04/29/24 09:00 Furosemide 40mg/4ml Vial IV 05/29/24 08:59 DAILY ANDREW Vancomycin HCl 1,000 mg/ 250 mls @ 125 mls/hr 04/28/24 19:30 04/28/24 19:44 Sodium Chloride IV 05/08/24 19:29 125 mls/hr Q12H ANDREW Administration Ceftriaxone Sodium 1 gm/ 50 mls @ 100 mls/hr 04/29/24 09:00 Sodium Chloride IV 05/09/24 08:59 Q24H ANDREW Ondansetron HCl 4 mg 04/28/24 22:04 Ondansetron 4mg/2ml Vial IV 05/28/24 22:03 Q8HP PRN Nausea Sodium Chloride 10 ml 04/28/24 18:30 04/28/24 18:32 Sodium Chloride 0.9% 10ml Syr (Rad Only) IV 05/28/24 18:29 10 ml NEEDED PRN Administration Maintain IV Site Sodium Chloride 10 ml 04/28/24 20:44 04/28/24 20:45 Sodium Chloride 0.9% 10ml Syr (Rad Only) IV 05/28/24 20:43 10 ml NEEDED PRN Administration Maintain IV Site Discontinued Medications Generic Name Dose Route Start Last Admin Trade Name Freq PRN Reason Stop Dose Admin Furosemide 40 mg 04/28/24 21:42 04/28/24 21:48 Furosemide 40mg/4ml Vial IV 04/28/24 21:43 40 mg ONCE ONE Administration Cefepime HCl 1 gm/ Sodium 50 mls @ 100 mls/hr 04/28/24 19:17 04/28/24 19:43 Chloride IV 04/28/24 19:18 100 mls/hr ONCE ONE Administration Iopamidol 75 ml 04/28/24 18:30 04/28/24 18:32 Iopamidol-370 (76%);100ml Bottle IV 04/28/24 18:31 75 ml ONCE ONE Administration Iopamidol 80 ml 04/28/24 20:44 04/28/24 20:46 Iopamidol-370 (76%);100ml Bottle IV 04/28/24 20:45 80 ml ONCE ONE Administration Morphine Sulfate 4 mg 04/28/24 16:38 04/28/24 17:05 Morphine 2mg/Ml Syringe IV 04/28/24 16:39 4 mg ONCE ONE Administration Morphine Sulfate 4 mg 04/28/24 20:23 04/28/24 21:07 Morphine 4mg/Ml Syringe IV 04/28/24 20:24 Not Given ONCE ONE Ondansetron HCl 4 mg 04/28/24 16:38 04/28/24 17:03 Ondansetron 4mg/2ml Vial IV 04/28/24 16:39 4 mg ONCE ONE Administration Ondansetron HCl 4 mg 04/28/24 20:23 04/28/24 21:08 Ondansetron 4mg/2ml Vial IV 04/28/24 20:24 Not Given ONCE ONE Sodium Chloride 50 ml 04/28/24 20:44 04/28/24 20:45 0.9 % Sodium Chloride 50 Ml Vial IV 04/28/24 20:45 50 ml ONCE ONE Administration ORDERS Category Date Time Status CT abdomen pelvis w con Stat Cat Scan 04/28/24 16:[address] angio abdomen pelvis Stat Cat Scan 04/28/24 19:20 Completed CTA Chest [CT angio chest - dissection] Stat Cat Scan 04/28/24 19:20 Completed CXR --portable [XR chest portable] Stat Exams 04/28/24 16:38 Completed CBC w/Auto Diff [Complete Blood Count Auto Diff] Stat Lab 04/28/24 16:15 Completed CMP [Comprehensive Metabolic Panel] Stat Lab 04/28/24 16:15 Completed HIV Combo Stat Lab 04/28/24 16:15 Completed Hepatitis C Ab Qual. W/ RFX Stat Lab 04/28/24 16:15 Completed Lactic Acid Stat Lab 04/28/24 16:46 Completed Trop I [Troponin I] Stat Lab 04/28/24 16:15 Completed Troponin I Q3H Lab 04/28/24 19:30 Completed Troponin I Q3H Lab 04/28/24 22:45 Ordered Urinalysis and Microscopic Stat Lab 04/28/24 16:16 Completed Medical Decision Narrative: In summary, patient is a 88 year old female PMHx HTN who presents to the ED for abdominal pain x3-4 days. Pt states she is having dysuria and lower back pain as well. Is having normal BM and passing gas. Reports no difficulties with food or fluids. Upon initial exam, patient is alert, oriented and cooperative. Denies any recent falls or trauma. Patient is hemodynamically stable. Physical exam remarkable for right sided abdominal pain, facial grimacing upon palpation. Abdomen is soft. Denies fever, chills, body aches, headache, visual disturbances, posterior neck pain, chest pain, shortness of breath, vomiting, diarrhea, difficulty with ambulation. Differential diagnosis includes SBO, infectious process, diverticulitis, cancer, volvulus, constipation, among others. Initial workup will be conducted with hematologic labs, imaging. Initial inventions include morphine and Zofran for symptomatic treatment. Initial workup reviewed by me. CBC unremarkable for any leukocytosis, stable H&H. CMP remarkable for carbon dioxide 21, anion gap 15.6, total bili 1.7, AST 43. Urinalysis remarkable for protein, 2+ blood. During patient's evaluation, she became suddenly hypoxic, 83% on room air. Patient was placed on 2 L. Final read of her chest x-ray is remarkable for a left basilar opacity. CT of the abdomen and pelvis remarkable for a T12 compression fracture with 95% loss of anterior height, L4 compression fracture with 50% loss of height. No acute intra-abdominal process. I confirm with patient she had a spinal fracture 18 months ago and reports this is not new. Patient admitted to [facility] for pneumonia and new oxygen requirement. She is agreeable to this. She is hemodynamically stable upon admission. <Stefan Pinto MD - Last Filed: 04/28/24 22:13> Vital Signs: 04/28/24 16:16 04/28/24 16:19 04/28/24 16:30 Temperature 98.0 F Temperature Source Oral Pulse Rate 69 68 Pulse Rate [Radial] 66 Respiratory Rate 16 Blood Pressure 175/74 H 169/64 H Blood Pressure [Right Arm] 175/74 H Blood Pressure Mean 95 99 Blood Pressure Mean [Right Arm] 107 Blood Pressure Source [Right Arm] Automatic Cuff Blood Pressure Position [Right Arm] Sitting 02 Sat by Pulse Oximetry 94 L 95 93 L Oxygen Delivery Method Room Air Oxygen Flow Rate (LPM) 04/28/24 17:00 04/28/24 17:30 04/28/24 18:00 Temperature Temperature Source Pulse Rate 65 73 63 Pulse Rate [Radial] Respiratory Rate Blood Pressure 168/71 H 134/55 L 171/73 H Blood Pressure [Right Arm] Blood Pressure Mean 103 97 Blood Pressure Mean [Right Arm] Blood Pressure Source [Right Arm] Blood Pressure Position [Right Arm] 02 Sat by Pulse Oximetry 92 L 91 L 93 L Oxygen Delivery Method Room Air Oxygen Flow Rate (LPM) 04/28/24 19:00 04/28/24 19:30 04/28/24 20:55 Temperature Temperature Source Pulse Rate 70 66 79 Pulse Rate [Radial] Respiratory Rate 16 17 Blood Pressure 165/66 H 142/68 H 163/69 H Blood Pressure [Right Arm] Blood Pressure Mean Blood Pressure Mean [Right Arm] Blood Pressure Source [Right Arm] Blood Pressure Position [Right Arm] 02 Sat by Pulse Oximetry 99 98 96 Oxygen Delivery Method Nasal Cannula Oxygen Flow Rate (LPM) 2 Lab Data Lab Results 04/28/24 16:15: WBC 7.5, RBC 4.51, Hgb 13.2, Hct 40.6, MCV 90.0, MCH 29.3, MCHC 32.5, RDW 12.4, Plt Count 199, MPV 10.4, Neut % (Auto) 77.7, Lymph % (Auto) 12.2, [place] % (Auto) 7.6, Eos % (Auto) 1.3, Baso % (Auto) 0.7, Neut # (Auto) 5.8, Lymph # (Auto) 0.9, [place] # (Auto) 0.6, Eos # (Auto) 0.1, Baso # (Auto) 0.1, Sodium 135 L, Potassium 4.6, Chloride 103, Carbon Dioxide 21 L, Anion Gap 15.6 H, BUN 13, Creatinine 0.50 L, Estimated Creat Clear 40, Estimated GFR 116, Est GFR ( Amer) 141, Glucose 72 L, Calcium 10.0, Total Bilirubin 1.7 H, AST 43 H, ALT 18, Alkaline Phosphatase 107, Troponin I < 0.01, Total Protein 6.3, Albumin 4.0, Globulin 2.3, Albumin/Globulin Ratio 1.7, HCV Ab TRACY w/Rflx PCR Qn Negative, HIV Ag/Ab Combo Qual Negative 04/28/24 16:16: Urine Color Yellow, Urine Appearance Clear, Urine pH 5.0, Ur Specific [place] >= 1.030, Urine Protein Trace A, Urine Glucose (UA) Negative, Urine Ketones Large, Urine Blood 2+ A, Urine Nitrate Negative, Urine Bilirubin Negative, Urine Urobilinogen 0.2, Ur Leukocyte Esterase Negative, Urine RBC 10-20, Urine WBC Occasional, Ur Squamous Epith Cells Occasional, Amorphous Sediment 1+, Urine Bacteria 1+ 04/28/24 16:46: Lactate 0.8 04/28/24 19:30: Troponin I 0.02 Orders (Tests/Meds): ED MEDICATIONS Generic Name Dose Route Start Last Admin Trade Name Freq PRN Reason Stop Dose Admin Acetaminophen 650 mg 04/28/24 22:04 Acetaminophen 325mg Tab PO 05/28/24 22:03 Q4HP PRN Fever or Mild Pain (1-3) Hydrocodone Bitart/Acetaminophen 1 tab 04/28/24 22:04 Hydrocodone/Apap 5/325 Mg Tablet PO 05/28/24 22:03 Q4HP PRN Mild to Moderate Pain (1-6) Azithromycin 250 mg 04/29/24 09:00 Azithromycin 250mg Tablet PO 05/09/24 08:59 DAILY ANDREW Enoxaparin Sodium 40 mg 04/29/24 09:00 Enoxaparin 40mg/0.4ml Syringe SUBCUT 05/29/24 08:59 DAILY ANDREW Furosemide 40 mg 04/29/24 09:00 Furosemide 40mg/4ml Vial IV 05/29/24 08:59 DAILY ANDREW Vancomycin HCl 1,000 mg/ 250 mls @ 125 mls/hr 04/28/24 19:30 04/28/24 19:44 Sodium Chloride IV 05/08/24 19:29 125 mls/hr Q12H ANDREW Administration Ceftriaxone Sodium 1 gm/ 50 mls @ 100 mls/hr 04/29/24 09:00 Sodium Chloride IV 05/09/24 08:59 Q24H ANDREW Ondansetron HCl 4 mg 04/28/24 22:04 Ondansetron 4mg/2ml Vial IV 05/28/24 22:03 Q8HP PRN Nausea Sodium Chloride 10 ml 04/28/24 18:30 04/28/24 18:32 Sodium Chloride 0.9% 10ml Syr (Rad Only) IV 05/28/24 18:29 10 ml NEEDED PRN Administration Maintain IV Site Sodium Chloride 10 ml 04/28/24 20:44 04/28/24 20:45 Sodium Chloride 0.9% 10ml Syr (Rad Only) IV 05/28/24 20:43 10 ml NEEDED PRN Administration Maintain IV Site Discontinued Medications Generic Name Dose Route Start Last Admin Trade Name Joseq PRN Reason Stop Dose Admin Furosemide 40 mg 04/28/24 21:42 04/28/24 21:48 Furosemide 40mg/4ml Vial IV 04/28/24 21:43 40 mg ONCE ONE Administration Cefepime HCl 1 gm/ Sodium 50 mls @ 100 mls/hr 04/28/24 19:17 04/28/24 19:43 Chloride IV 04/28/24 19:18 100 mls/hr ONCE ONE Administration Iopamidol 75 ml 04/28/24 18:30 04/28/24 18:32 Iopamidol-370 (76%);100ml Bottle IV 04/28/24 18:31 75 ml ONCE ONE Administration Iopamidol 80 ml 04/28/24 20:44 04/28/24 20:46 Iopamidol-370 (76%);100ml Bottle IV 04/28/24 20:45 80 ml ONCE ONE Administration Morphine Sulfate 4 mg 04/28/24 16:38 04/28/24 17:05 Morphine 2mg/Ml Syringe IV 04/28/24 16:39 4 mg ONCE ONE Administration Morphine Sulfate 4 mg 04/28/24 20:23 04/28/24 21:07 Morphine 4mg/Ml Syringe IV 04/28/24 20:24 Not Given ONCE ONE Ondansetron HCl 4 mg 04/28/24 16:38 04/28/24 17:03 Ondansetron 4mg/2ml Vial IV 04/28/24 16:39 4 mg ONCE ONE Administration Ondansetron HCl 4 mg 04/28/24 20:23 04/28/24 21:08 Ondansetron 4mg/2ml Vial IV 04/28/24 20:24 Not Given ONCE ONE Sodium Chloride 50 ml 04/28/24 20:44 04/28/24 20:45 0.9 % Sodium Chloride 50 Ml Vial IV 04/28/24 20:45 50 ml ONCE ONE Administration ORDERS Category Date Time Status CT abdomen pelvis w con Stat Cat Scan 04/28/24 16:[address] angio abdomen pelvis Stat Cat Scan 04/28/24 19:20 Completed CTA Chest [CT angio chest - dissection] Stat Cat Scan 04/28/24 19:20 Completed CXR --portable [XR chest portable] Stat Exams 04/28/24 16:38 Completed CBC w/Auto Diff [Complete Blood Count Auto Diff] Stat Lab 04/28/24 16:15 Completed CMP [Comprehensive Metabolic Panel] Stat Lab 04/28/24 16:15 Completed HIV Combo Stat Lab 04/28/24 16:15 Completed Hepatitis C Ab Qual. W/ RFX Stat Lab 04/28/24 16:15 Completed Lactic Acid Stat Lab 04/28/24 16:46 Completed Trop I [Troponin I] Stat Lab 04/28/24 16:15 Completed Troponin I Q3H Lab 04/28/24 19:30 Completed Troponin I Q3H Lab 04/28/24 22:45 Ordered Urinalysis and Microscopic Stat Lab 04/28/24 16:16 Completed Medical Decision Narrative: In summary, patient is a 88 year old female PMHx HTN who presents to the ED for abdominal pain x3-4 days. Pt states she is having dysuria and lower back pain as well. Is having normal BM and passing gas. Reports no difficulties with food or fluids. Upon initial exam, patient is alert, oriented and cooperative. Denies any recent falls or trauma. Patient is hemodynamically stable. Physical exam remarkable for right sided abdominal pain, facial grimacing upon palpation. Abdomen is soft. Denies fever, chills, body aches, headache, visual disturbances, posterior neck pain, chest pain, shortness of breath, vomiting, diarrhea, difficulty with ambulation. Differential diagnosis includes SBO, infectious process, diverticulitis, cancer, volvulus, constipation, among others. Initial workup will be conducted with hematologic labs, imaging. Initial inventions include morphine and Zofran for symptomatic treatment. Initial workup reviewed by me. CBC unremarkable for any leukocytosis, stable H&H. CMP remarkable for carbon dioxide 21, anion gap 15.6, total bili 1.7, AST 43. Urinalysis remarkable for protein, 2+ blood. During patient's evaluation, she became suddenly hypoxic, 83% on room air. Patient was placed on 2 L. Final read of her chest x-ray is remarkable for a left basilar opacity. CT of the abdomen and pelvis remarkable for a T12 compression fracture with 95% loss of anterior height, L4 compression fracture with 50% loss of height. No acute intra-abdominal process. I confirm with patient she had a spinal fracture 18 months ago and reports this is not new. Patient admitted to [facility] for pneumonia and new oxygen requirement. She is agreeable to this. She is hemodynamically stable upon admission. I was consulted by the MACHO, and we discussed the complexity of the problems being addressed. I approved the treatment and management plan for this patient's care in the Emergency Department, thus performing a substantive portion of the medical decision making. Stefan Pinto MD Critical Care <Esperanza Martinez APRN - Last Filed: 04/28/24 21:46> Critical Care Time Critical Care Time: No <Stefan Pinto MD - Last Filed: 04/28/24 22:13> Critical Care Time Critical Care Time: Yes (Respiratory, hypoxemic respiratory failure) Attestation: On 04/28/24, the high probability of a clinically significant, sudden or life threatening deterioration of the following system(s) required my full and direct attention, intervention and personal management. The time I documented below is in addition to time spent performing reported procedures but includes the following listed in this critical care notation. Total Time Total Critical Care Time: 35
--- NOTE | 2024-04-28 16:38 | XR_ITS ---
PROCEDURE INFORMATION: Exam: XR Chest Exam date and time: 04/28/2024 5:42 PM Age: 88 years old Clinical indication: Pain; Chest pressure; Additional info: Cp TECHNIQUE: Imaging protocol: Radiologic exam of the chest. Views: 1 view. COMPARISON: CT CHEST WO/W CON 06/25/2021 1:38 PM FINDINGS: Lungs: Left basilar opacities partially silhouette the diaphragm are favored to represent combination of atelectasis/pleural effusion/consolidation. Pleural spaces: See Lungs finding. Heart/Mediastinum: Unremarkable. No cardiomegaly. Bones/joints: Unremarkable. IMPRESSION: Left basilar opacities partially silhouette the diaphragm are favored to represent combination of atelectasis/pleural effusion/consolidation.
--- NOTE | 2024-04-28 16:39 | CT_ITS ---
PROCEDURE INFORMATION: Exam: CT Abdomen And Pelvis With Contrast Exam date and time: 04/28/2024 6:29 PM Age: 88 years old Clinical indication: Abdominal pain; Additional info: Abd pain TECHNIQUE: Imaging protocol: Computed tomography of the abdomen and pelvis with contrast. Radiation optimization: All CT scans at this facility use at least one of these dose optimization techniques: automated exposure control; mA and/or kV adjustment per patient size (includes targeted exams where dose is matched to clinical indication); or iterative reconstruction. Contrast material: ISOVUE; Contrast volume: 75 ml; Contrast route: IV; COMPARISON: 1. CR XR PELVIS 1-2V 10/06/2020 9:[address] CHEST WO/W CON 06/25/2021 1:[address] LUMBAR SPINE WO CON 10/06/2020 9:40 PM FINDINGS: Lungs: Dependent bilateral lung base opacities favor atelectasis. Liver: Mild intrahepatic and extrahepatic biliary dilatation. Gallbladder and biliary ducts: See Liver finding. Pancreas: Normal. No ductal dilation. Spleen: Normal. No splenomegaly. Adrenal glands: Normal. No mass. Kidneys and ureters: Right renal Bosniak 1 cystic lesion that is homogeneous and fluid density (-9-20 HU), no septations or calcifications, having coulter smooth and thin. Measurement is 1.2 cm. No follow-up recommended. Stomach and bowel: Moderate size hiatal hernia with gastric cardia located at the inferior mediastinum. Diverticula are scattered throughout the colon without inflammatory changes. Appendix: No evidence of appendicitis. Intraperitoneal space: Unremarkable. No free air. No significant fluid collection. 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 Lymph nodes: Unremarkable. No enlarged lymph nodes. Urinary bladder: Unremarkable as visualized. Reproductive: Unremarkable as visualized. Bones/joints: Left hip arthroplasty with metal artifact that obscures evaluation of the lower pelvis. T12 compression fracture with 95% loss of anterior height new from comparison chest CT. L4 compression fracture with 50% loss of height worse from prior CT L-spine. Soft tissues: Normal. IMPRESSION: 1. T12 compression fracture with 95% loss of anterior height new from comparison chest CT. L4 compression fracture with 50% loss of height worse from prior CT L-spine. 2. No acute intra-abdominal process. COMMENTS: Consistent with the [employer]'s Incidental Findings Committee white paper (J Am Lisandra Radiol 2018): Any incidental renal lesion less than 1 cm or classified as too small to characterize, or any incidental cystic renal lesion characterized as simple-appearing, is likely benign. No follow-up imaging is recommended for these lesions per consensus recommendations based on imaging criteria.
[2024-04-28 16:47] LABS: Basophils # 0.1 K/mm3 (0-0.2); Basophils % 0.7 % (0.1-2.0); Eosinophils # 0.1 K/mm3 (0.0-0.4); Eosinophils % 1.3 % (0.1-12.0); Hematocrit 40.6 % (37.0-47.0); Hemoglobin 13.2 g/dL (12.2-16.2); Lymphocytes # 0.9 K/mm3 (0.7-4.5); Lymphocytes % 12.2 % (10-50); Mean Corpuscular HGB Conc 32.5 g/dL (31.8-35.4); Mean Corpuscular Hemoglobin 29.3 pg (27.0-31.2); Mean Platelet Volume 10.4 fl (7.4-10.4); Monocytes # 0.6 K/mm3 (0.1-1.0); Monocytes % 7.6 % (1.7-9.3); Neutrophils # 5.8 K/mm3 (1.8-7.8); Neutrophils % 77.7 % (37.0-80.0); Platelet Count 199 K/mm3 (142-424); Red Blood Count 4.51 M/mm3 (4.20-5.40); Red Cell Distribution Width 12.4 % (11.5-17.5); White Blood Count 7.5 K/mm3 (4.8-10.8)
[2024-04-28 17:02] LABS: Troponin I < 0.01 ng/ml (0.00-0.034)
[2024-04-28] MEDS: ONDANSETRON 4MG/2ML VIAL 4 MG IV (17:03)
[2024-04-28] MEDS: MORPHINE 2MG/ML SYRINGE 4 MG IV (17:05)
[2024-04-28 17:09] LABS: Microscopic, Urine URINE MICROSCOPIC (MICROSCOPIC)
[2024-04-28 17:15] LABS: Lactic Acid 0.8 mmol/L (0.7-2.1)
[2024-04-28 17:15] LABS: Appearance,Urine Clear (Clear); Color,Urine Yellow (Yellow); Glucose,Urine (UA) Negative (Negative); Protein,Urine Trace (Negative); Specific Gravity, Urine >= 1.030 (1.005-1.030)
[2024-04-28 17:16] LABS: Blood, Urine 2+ (Negative); Ketones,Urine Large (Negative); Nitrate,Urine Negative (Negative)
[2024-04-28 17:17] LABS: Bilirubin,Urine Negative (Negative); Leukocyte Esterase,Urine Negative (Negative); Urobilinogen,Urine 0.2 EU/dl (0.2)
[2024-04-28 17:37] LABS: Hepatitis C Ab Qual. W/ RFX NEGATIVE (Negative)
[2024-04-28 17:41] LABS: Amorphous Sediment,Urine 1+ /lpf; Bacteria,Urine 1+ /lpf; Squamous Epithelial Cell,Urine Occasional #/hpf (0-5); WBC,Urine Occasional #/hpf (0-3)
[2024-04-28 18:04] LABS: Chloride 103 mmol/L (98-107); Potassium 4.6 mmoL/L (3.5-5.1); Sodium 135 mmol/L (136-145)
[2024-04-28 18:07] LABS: Alanine Aminotransferase 18 U/L (12-78); Albumin/Globulin Ratio 1.7 (1.1-1.8); Alkaline Phosphatase 107 U/L (38-126); Anion Gap 15.6 mEq/L (5-15); Aspartate Amino Transferase 43 U/L (14-36); Bilirubin,Total 1.7 mg/dl (0.2-1.3); Blood Urea Nitrogen 13 mg/dl (7-17); Carbon Dioxide 21 mmol/L (22.0-30.0); Creatinine Clearance Estimated 40 mL/min (50-200); Estimated Glomerular Filt Rate 116 ml/min (>60); GFR (African American) 141 ML/MIN (>60); Globulin 2.3 g/dL (1.3-3.2); Glucose 72 mg/dl (74-100); Total Protein,Serum 6.3 g/dl (6.3-8.2)
[2024-04-28] MEDS: SODIUM CHLORIDE 0.9% 10ML SYR (RAD ONLY) 10 ML IV ×2 (18:32→20:45)
[2024-04-28] MEDS: IOPAMIDOL-370 (76%);100ML BOTTLE 75 ML IV (18:32)
[2024-04-28 18:48] LABS: HIV Combo NEGATIVE (Negative)
--- NOTE | 2024-04-28 19:20 | CT_ITS ---
PROCEDURE INFORMATION: Exam: CTA Abdomen and Pelvis With Contrast Exam date and time: 04/28/2024 8:43 PM Age: 88 years old Clinical indication: Abdominal pain; Other: Right sided; Additional info: Abd pain / right sided TECHNIQUE: Imaging protocol: Computed tomographic angiography of the abdomen and pelvis with contrast. Exam focused on the arteries. 3D rendering (Not supervised by radiologist): MIP and/or 3D reconstructed images were created by the technologist. Radiation optimization: All CT scans at this facility use at least one of these dose optimization techniques: automated exposure control; mA and/or kV adjustment per patient size (includes targeted exams where dose is matched to clinical indication); or iterative reconstruction. 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 Celiac trunk and mesenteric arteries: Mild calcific atherosclerotic disease of the SMA without stenosis. Renal arteries: Mild calcific atherosclerotic disease of the bilateral renal arteries without stenosis. Right iliac arteries: No occlusion or significant stenosis. Left iliac arteries: No occlusion or significant stenosis. Liver: Mild intrahepatic and extrahepatic biliary dilatation. Gallbladder and biliary ducts: See Liver finding. Pancreas: Normal. No ductal dilation. Spleen: Normal. No splenomegaly. Adrenal glands: Normal. No mass. Kidneys and ureters: Right renal Bosniak 1 cystic lesion that is homogeneous and fluid density (-9-20 HU), no septations or calcifications, having coulter smooth and thin. Measurement is 1.2 cm. No follow-up recommended. Stomach and bowel: Moderate size hiatal hernia with gastric cardia located at the inferior mediastinum. Diverticula are scattered throughout the colon without inflammatory changes. Appendix: No evidence of appendicitis. Intraperitoneal space: Unremarkable. No free air. No significant fluid collection. Lymph nodes: Unremarkable. No enlarged lymph nodes. Urinary bladder: Unremarkable as visualized. Reproductive: Unremarkable as visualized. Bones/joints: Left hip arthroplasty with metal artifact that obscures evaluation of the lower pelvis. T12 compression fracture with 95% loss of anterior height new from comparison chest CT. L4 compression fracture with 50% loss of height worse from prior CT L-spine. Compression. Soft tissues: Normal. Other findings: Mild calcific atherosclerotic disease of the bilateral iliac arteries without stenosis. IMPRESSION: 1. 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 2. Mild calcific atherosclerotic disease of the SMA without stenosis. 3. Mild calcific atherosclerotic disease of the bilateral renal arteries without stenosis. 4. Mild calcific atherosclerotic disease of the bilateral iliac arteries without stenosis.
--- NOTE | 2024-04-28 19:20 | CT_ITS ---
PROCEDURE INFORMATION: Exam: CTA Chest With Contrast Exam date and time: 04/28/2024 8:43 PM Age: 88 years old Clinical indication: Shortness of breath; Additional info: SOA back pain TECHNIQUE: Imaging protocol: Computed tomographic angiography of the chest with contrast. Exam focused on the arteries. 3D rendering (Not supervised by radiologist): MIP and/or 3D reconstructed images were created by the technologist. Radiation optimization: All CT scans at this facility use at least one of these dose optimization techniques: automated exposure control; mA and/or kV adjustment per patient size (includes targeted exams where dose is matched to clinical indication); or iterative reconstruction. Contrast material: ISOVUE; Contrast volume: 80 ml; Contrast route: INTRAVENOUS (IV); COMPARISON: CT CHEST WO/W CON 06/25/2021 1:38 PM FINDINGS: Pulmonary arteries: Normal. No pulmonary emboli. Aorta: There is mild calcific atherosclerotic disease of the thoracic aorta without aneurysmal dilatation. Lungs: There is prominence of the pulmonary vasculature with interstitial opacities. Pleural spaces: No pneumothorax. Heart: Cardiac silhouette is enlarged. Coronary arteries: Mild three-vessel calcific atherosclerotic disease of the coronary arteries is present. Lymph nodes: Unremarkable. No enlarged lymph nodes. Diaphragm: A small sliding hiatal hernia is present. Bones/joints: T12 compression fracture with 95% loss of anterior height new from comparison chest CT. Soft tissues: Unremarkable. Other findings: Bilateral minor and major fissural effusions. IMPRESSION: 1. Constitution of findings compatible with mild CHF in the appropriate clinical setting. 2. T12 compression fracture unchanged from prior exam.
[2024-04-28] MEDS: CEFEPIME HCL 1 GM in 0.9 % SODIUM CHLORIDE 50 ML IV (19:43)
[2024-04-28] MEDS: VANCOMYCIN HCL 1,000 MG in 0.9 % SODIUM CHLORIDE 250 ML 125 MG IV (19:44)
--- NOTE | 2024-04-28 19:58 | HMH.ITSTN ---
RN to check about getting a different IV to withstand CTA pressure.
--- NOTE | 2024-04-28 20:10 | PC.NURSE ---
Meds infusing without difficulty. No s/s of infiltration on allergic reaction.,
--- NOTE | 2024-04-28 20:11 | PC.NURSE ---
1905: Report received from off going RN. Pt resting in bed. No distress noted. Pt does require oxygen at this time 2L:/min Sats 93%.
--- NOTE | 2024-04-28 20:30 | PC.NURSE ---
20g RAC USGIV placed for CT
[2024-04-28 20:41] LABS: Troponin I 0.02 ng/ml (0.00-0.034)
[2024-04-28] MEDS: 0.9 % SODIUM CHLORIDE 50 ML VIAL IV (20:45)
[2024-04-28] MEDS: IOPAMIDOL-370 (76%);100ML BOTTLE 80 ML IV (20:46)
--- NOTE | 2024-04-28 20:47 | PC.NURSE ---
Pt to CT scan
[2024-04-28] MEDS: FUROSEMIDE 40MG/4ML VIAL 40 MG IV (21:48)
--- NOTE | 2024-04-28 22:08 | P.HP_ITS ---
<Statement entered by Justice Sena MD - 05/02/24 19:49> Personally evaluated patient and agree with plan of care as outlined by the PHYSIC[facility] [employer]. History of Present Illness *Admission Date: 04/28/24 *Reason for visit:: Abdominal pain *History of present illness: This is an 88-year-old female who has a past medical history significant for hypertension, TIA, diverticulitis, GERD, and arthrosclerosis who presents from [facility] with a chief complaint of abdominal pain, lower back pain, and difficulty urinating. Due to patient's symptoms, she presented to the emergency room for evaluation. While in the emergency room, CTA of the chest revealed findings compatible with mild congestive heart failure, T12 compression fracture (this is known), CTA of the abdomen pelvis revealed moderate calcification in multiple areas, and CT scan of the abdomen and pelvis was negative for any acute intra-abdominal or intrapelvic process. Patient had an episode of low level of oxygen with oxygen saturation in 88 percentile on room air. Due to these findings, patient has been admitted for further management. During my evaluation of the patient, patient states she has had a 3-4-day history of diffuse abdominal pain. She reports having bowel movements every other day with the aid of stool softeners. She has had some nausea but no vomiting. Patient currently has no abdominal pain during my exam. On further questioning, patient states she has had lower extremity edema in the past and it was post left hip fracture repair. She is currently prescribed Lasix and potassium supplementation and management of the edema. She has no formal history of heart failure. She is currently denying any lightheadedness, dizziness, fever, chills, rigors, cough, shortness of breath, dyspnea, PND, orthopnea, or diarrhea. Her additional chemistries obtained in the emergency room were unremarkable. [facility] Disclaimer: The information contained in this section may have been updated after the patient was seen, as this information can be updated by other users. Social History Smoking Status: Never smoker alcohol intake: never current occupational status: retired Travel in the last 8 weeks: None Have you lived/traveled outside [place] in past 30 days?: No Contact w/someone who lives/traveled outside US past 30 days?: No Exposure to someone with infectious disease in past 14 days?: No Do you have a fever (greater than 100.4 F or 38 C)?: No Have you tested positive for COVID-19: No Exposed to someone with COVID-19 in past 14 days?: No Do you have a sore throat?: No Do you have a cough?: No Do you have any weakness?: No Do you have any diarrhea?: No Are you experiencing any unusual bleeding?: No Do you have any muscle aches/pain?: No Do you have any abdominal pain?: Yes Are you experiencing loss of taste or smell?: No Other Medical History Have you received the Flu Vaccine for this season: No Have you received the Pneumonia Vaccine: No Review of Systems Review of Systems Review of systems:: pertinent systems reviewed and negative unless documented below Constitutional Constitutional: Reports system reviewed and no additional complaints, except as documented Eyes Eyes: Reports system reviewed and no additional complaints, except as documented ENT Ears, Nose, Mouth, and Throat: Reports system reviewed and no additional complaints, except as documented *Cardiovascular Cardiovascular: Reports system reviewed and no additional complaints, except as documented *Respiratory Respiratory: Reports system reviewed and no additional complaints, except as documented *Gastrointestinal Gastrointestinal: Reports abdominal pain *Genitourinary Genitourinary: Reports difficulty voiding *Musculoskeletal Musculoskeletal: Reports back pain Integumentary/Breasts Skin/Breast: Reports system reviewed and no additional complaints, except as documented *Neurologic Neurologic: Reports system reviewed and no additional complaints, except as documented Psychiatric Psychiatric: Reports system reviewed and no additional complaints, except as documented Endocrine Endocrine: Reports system reviewed and no additional complaints, except as documented Hematologic/Lymphatic Hematologic/Lymphatic: Reports system reviewed and no additional complaints, except as documented Allergic/Immunologic Allergic/Immunologic: Reports system reviewed and no additional complaints, except as documented Meds Home Medications and Allergies Home Medications ?Medication ?Instructions ?Recorded ?Confirmed ?Type famotidine 40 mg tablet 40 mg PO BID GERD 10/06/20 04/28/24 History atenolol 50 mg tablet See Rx Instructions .Route .COMPLEX 04/28/24 04/28/24 History atorvastatin 10 mg tablet 10 mg PO DAILY 04/28/24 04/28/24 History brexpiprazole 1 mg tablet (Rexulti) 2 mg PO DAILY 04/28/24 04/28/24 History famotidine 40 mg tablet 40 mg PO DAILY 04/28/24 04/28/24 History furosemide 20 mg tablet 20 mg PO DAILY 04/28/24 04/28/24 History magnesium hydroxide 400 mg/5 mL 400 mg PO DAILY 04/28/24 04/28/24 History oral suspension (Milk of Magnesia) potassium chloride 10 mEq 10 meq PO DAILY 04/28/24 04/28/24 History capsule,extended release potassium chloride 20 mEq 10 meq PO DAILY 04/28/24 04/28/24 History tablet,extended release(part/cryst) New Prescriptions to Start Prescriptions: Allergies Allergy/AdvReac Type Severity Reaction Status Date / Time No Known Allergies Allergy Verified 07/09/22 13:09 Exam Data for Last 24 hours Vital signs and Labs for Last 24 Hours: Temp Pulse Resp BP Pulse Ox O2 Del Method O2 Flow Rate 98.0 F 79 17 163/69 H 96 Nasal Cannula 2 04/28/24 16:19 04/28/24 20:55 04/28/24 20:55 04/28/24 20:55 04/28/24 20:55 04/28/24 19:00 04/28/24 19:00 Laboratory Results - last 24 hr 04/28/24 16:15: WBC 7.5, RBC 4.51, Hgb 13.2, Hct 40.6, MCV 90.0, MCH 29.3, MCHC 32.5, RDW 12.4, Plt Count 199, MPV 10.4, Neut % (Auto) 77.7, Lymph % (Auto) 12.2, [place] % (Auto) 7.6, Eos % (Auto) 1.3, Baso % (Auto) 0.7, Neut # (Auto) 5.8, Lymph # (Auto) 0.9, [place] # (Auto) 0.6, Eos # (Auto) 0.1, Baso # (Auto) 0.1, Sodium 135 L, Potassium 4.6, Chloride 103, Carbon Dioxide 21 L, Anion Gap 15.6 H , BUN 13, Creatinine 0.50 L, Estimated Creat Clear 40, Estimated GFR 116, Est GFR ( Amer) 141, Glucose 72 L, Calcium 10.0, Total Bilirubin 1.7 H, AST 43 H, ALT 18, Alkaline Phosphatase 107, Troponin I < 0.01, Total Protein 6.3, Albumin 4.0, Globulin 2.3, Albumin/Globulin Ratio 1.7, HCV Ab TRACY w/Rflx PCR Qn Negative, HIV Ag/Ab Combo Qual Negative 04/28/24 16:16: Urine Color Yellow, Urine Appearance Clear, Urine pH 5.0, Ur Specific [place] >= 1.030, Urine Protein Trace A, Urine Glucose (UA) Negative, Urine Ketones Large, Urine Blood 2+ A, Urine Nitrate Negative, Urine Bilirubin Negative, Urine Urobilinogen 0.2, Ur Leukocyte Esterase Negative, Urine RBC 10- 20, Urine WBC Occasional, Ur Squamous Epith Cells Occasional, Amorphous Sediment 1+, Urine Bacteria 1+ 04/28/24 16:46: Lactate 0.8 04/28/24 19:30: Troponin I 0.02 I & O for Last 24 hours: Intake & Output 04/25/24 04/26/24 04/27/24 04/28/24 23:59 23:59 23:59 23:59 Weight 64.864 kg Constitutional Constitutional: no acute distress and thin *Routine HEENT Exam Head: Present normocephalic and atraumatic Eye: Present EOMI, PERRL and normal accommodation ENT: Present mucous membranes moist *Routine Neck Exam Neck: Present supple, full ROM and trachea midline *Routine Respiratory Exam Respiratory: Present CTA bilaterally, normal respiratory effort, able to speak in complete sentences and symmetric chest movement *Routine Cardiovascular Exam Cardiovascular: Present RRR, Normal S1 and Normal S2 *Routine Abdominal Exam Abdominal: Present soft and normoactive bowel sounds *Routine Rectal Exam Rectal:: deferred *Routine Genitalia Exam Genitalia:: deferred *Routine Extremities Exam Extremities: Present full ROM, pulses intact and normal capillary refill Comments: Trace edema to bilateral lower extremities Routine Back/Spine/Pelvis Exam Back/Spine: Present full ROM *Routine Skin Exam Skin: Present intact, dry and warm *Routine Neurological Exam Neurological: Present alert, oriented X3, CN II-XII intact and moving all extremities Routine Psychiatric Exam Psychiatric: Present normal affect, cooperative, good insight and good judgment H&P: Result Impressions This is an 88-year-old female who initially presented with abdominal pain who had oxygen saturations on room air decreased at 88 percentile. Imaging of the chest revealed a left lower purulent effusion with possible superimposed pneumonia Assessment and Plan *Assessment and plan (1) Pleural effusion: Status: Acute Category: Medical Code(s): J90 - Pleural effusion, not elsewhere classified (2) Left lower lobe pneumonia: Status: Acute Qualifiers: Pneumonia type: due to unspecified organism Qualified Code(s): J18.9 - Pneumonia, unspecified organism Category: Medical Code(s): J18.9 - Pneumonia, unspecified organism (3) Abdominal pain: Status: Acute Qualifiers: Abdominal location: generalized Qualified Code(s): R10.84 - Generalized abdominal pain Category: Medical Code(s): R10.9 - Unspecified abdominal pain (4) Acute hypoxic respiratory failure: Status: Acute Category: Medical Code(s): J96.01 - Acute respiratory failure with hypoxia Plan Assessment: Left lower lobe pleural effusion -Will give Lasix 40 mg IV daily -Obtain 2D echo -Obtain BNP Possible healthcare associated bacterial pneumonia -I have a low suspicion at this time for pneumonia -Will obtain procalcitonin and use this value to guide antibiotic therapy -White blood cell count is currently normal -Will continue Rocephin 1 g IV daily -250 mg azithromycin daily -Since I have low suspicion for healthcare associated pneumonia, we will hold off on any MRSA coverage -Will consider swabbing for MRSA -If procalcitonin and white blood cell count remain without any elevation, will de-escalate antibiotics Acute hypoxic respiratory failure -Supplemental oxygen maintain oxygen saturation greater 94% Abdominal pain -Abdominal exam is benign -Patient's pain has resolved -She is having normal bowel movements -It is not clear was driving patient's pain may be referred pain from effusion Plan: Admit patient to the MedSur unit Up with assistance SCDs bilateral lower extreme Daily weight Cardiac diet CBC/BMP daily Saline lock 40 mg Lovenox subcu daily for DVT prophylaxis Follow grams [place] p.o. every 4 hours for moderate pain 4 mg Zofran IV push. Hours. Nausea vomit Full code I will discuss this case with attending physician Dr. Sena and a look forward to more input
--- NOTE | 2024-04-28 22:22 | PC.NURSE ---
pt arrived from ed to floor via stretcher at 2.
[2024-04-28] MEDS: LORazepam 2MG/ML VIAL 0.25 MG IV (23:15)
[2024-04-28] MEDS: LORazepam 2MG/ML VIAL 0.5 MG IM (23:55)
[2024-04-29] VITALS (7 sets, daily range): BP systolic 127–152; BP diastolic 58–70; PULSE 64–85; RESP 14–18; TEMP 36.5–36.8; O2SAT 92–100; BMI 21.4
--- NOTE | 2024-04-29 02:30 | PC.NURSE ---
Pt arrived to the unit via stretcher at 2222. Pt was transferred to bed in room, Pt became extremely anxious and aggressive and began to verbally abuse staff and family member when asked if staff could change her brief as she had soiled it with urine and feces. Pt began to become very defensive and proceeded to strike staff. Pt attempted to get out of bed despite many attempts from staff to redirect pt. Pt also removed her oxygen and refused to put it back on. (Pt requires 2L of O2) Pt at this time attempted to stand up and was extremely unsteady, she continued to strike staff, while staff made attempts to keep pt from falling. Robin Day was contacted @ 2237 and informed of pt current state, new orders for IV Ativan 0.25 mg were obtained. Pt was resistant to staff and refused medication admin. Family member at bedside suggested that a male nurse might have better luck with her cooperation. This nurse contacted ED staff for assistance to deescalate pt and attempt to administer medications. Clinton Garcias was successful in administering Ativan 0.25 mg per IV @ 2315, one on one monitoring was initiated @ that time. Pt up to chair despite attempts to prevent and maintain pt safety. Pt continued to verbally and physically abuse staff and family member when attempts to keep pt safe were made. Pt removed x2 IVs. Robin Day APRN was notified again @ 2344 and informed of pt interventions were unsuccessful, Robin Day did come to bedside and gave verbal orders to administer Ativan 0.5 mg IM ONCE. Medication was administered @ 2355 per provider order and pt was transferred to bed and soiled brief and clothes were removed and replaced at that time. Pt remained on one on one monitoring and in bed. Pt did begin to calm down approx 0030 and fell asleep. Pt seems to be resting well at this time and remains on one on one monitoring.
--- NOTE | 2024-04-29 03:44 | PC.NURSE ---
Pt is alert only to self. This nurse was unable to fully assess pt upon admission, further attempts at assessment have been unsuccessful. Pt breathing is not labored and no resp distress is noted. Pt continues to refuse care and curse staff in between sleep, however has not been combative since previous note. Pt refuses to put gown on, refuses to put clean/dry brief on after staff convinced her to remove soiled one. Pt also refuses to wear O2, tech was able to obtain vitals signs while pt had NC on and Pt O2 saturation was 100% on 2L. Pt is resting with eyes closed at this time. one on one monitoring continues, seizure pads in place and alarm set for safety.
--- NOTE | 2024-04-29 04:26 | INFXCTL.NOTE ---
Pt refused labs, despite multiple attempts this shift. Pt also refused v/s @ 0400. This nurse was able to place pulse ox to monitor O2 saturation Pt is currently tolerating 1L well @ 96%.
--- NOTE | 2024-04-29 06:00 | CA_ITS ---
APPROVED REPORT EXAM: Comprehensive 2D, Doppler, and color-flow Echocardiogram Power And Recovery Supervisor: BILL Leger, RVS Ht: 5 ft 6 in Wt: 143lbs BSA: 1.73 BP: 163/69 mmHg Indications: HTN, CHF, Pleural effusion of left lower lobe Echo Enhancing Agent Comments: TDS: patient combative refusing portion of exam 2D Dimensions IVSd 0.99 cm LVEF (Visual) 62.40 % PWd 1.25 cm LA Volume 57.60 mL LVDd 4.73 cm LA Volume Index [id number] mL/m2 (M/F) 16-34 LVDs 3.14 cm Left Atrium 4.71 cm M-Mode Dimensions RVDd 1.44 cm (0.9-2.6) LA Diam 4.88 cm (1.9-4.0) LVDd 4.85 cm (3.5-5.7) LVDs 3.47 cm (3.5-5.7) IVSd 1.00 cm (0.6-1.1) PWd 1.06 cm (0.6-1.1) EF (Teich) 54.80% EPSs 0.68 cm FS 28.50% EDV (Teich) 110.20 mL TAPSE 1.72 (<1.7) ESV (Teich) 49.80 mL LV Diastology E Decel Time 197 (160-240 msec) E/A Ratio 1.50 MED A' 7.00 cm/s LAT A' 3.80 cm/s Aortic Valve SUSIE Index 1.39 cm2/m2 AoV Peak Jorge Alberto. 140.0 (50-130 cm/s) AO Peak GR. 7.80 mmHg AO Mean GR. 3.90 (<5 mmHg) AO VTI 29.8 (18-25 cm) SUSIE (VTI) 2.48 (2.5-4.5 cm2) Mitral Valve MV A Velocity 70.0 (40-130 cm/s) E/A Ratio 1.50 Pulmonary Valve MS End VMAX 171.0 cm/s Tricuspid Valve TR P. Velocity 368.00 cm/s RAP Estimate 10.00 mmHg RVSP 64.00 mmHg Left Ventricle The left ventricle is normal size. The left ventricular systolic function is normal. The left ventricular ejection fraction is within the normal range. There is increased LV wall thickness. There is normal LV segmental wall motion. The left ventricular diastolic function is normal. LVEF is 55%. Right Ventricle The right ventricle is normal size. The right ventricular systolic function is normal. Atria Left atrium is mildly dilated. The right atrium size is normal. There is no Doppler evidence of interatrial shunt. Aortic Valve The aortic valve is mildly thickened. There is no aortic valvular stenosis. No aortic regurgitation is present. Mitral Valve The mitral valve is mildly thickened. No evidence of mitral valve stenosis. Trace mitral regurgitation. Tricuspid Valve Tricuspid valve is grossly normal in structure and function. Mild tricuspid regurgitation. RVSP is 25-30 mmHg. Pulmonic Valve The pulmonary valve is normal in structure. Mild pulmonic regurgitation. Great Vessels The aortic root is normal in size. IVC is normal in size and collapses >50% with inspiration. Pericardium There is no pericardial effusion. Other Information Study Quality: Fair Conclusion Normal biventricular systolic function. Mild MS, mild TR. Electronically signed by : Suki Yousif MD 05/01/2024 17:22:25
--- NOTE | 2024-04-29 07:55 | SW/DCPLANNER ---
Addendum entered by Laura 04/29/24 10:38: I have updated Dawn w/ [facility] that patient will return today. Original Note: This patient currently resides at [facility] level of care. I will continue to follow up w/ Dawn at [facility] until patient is medically stable for discharge. Discharge date is unknown at this time. Updated patient information has been faxed.
--- NOTE | 2024-04-29 08:02 | P.CONPHA_ITS ---
Pharmacy Intervention Comments: MEDICATION RECONCILIATION COMPLETED ON PATIENT USING MAR FROM [facility]. -BERLIN AZEVEDO, RICCID
--- NOTE | 2024-04-29 08:02 | HMH.PHAINT1 ---
Pharmacy Intervention Comments: MEDICATION RECONCILIATION COMPLETED ON PATIENT USING MAR FROM [facility]. -BERLIN AZEVEDO, RICCID
[2024-04-29 14:01] LABS: Basophils # 0.1 K/mm3 (0-0.2); Basophils % 0.7 % (0.1-2.0); Eosinophils # 0.1 K/mm3 (0.0-0.4); Eosinophils % 0.8 % (0.1-12.0); Hematocrit 41.3 % (37.0-47.0); Hemoglobin 13.5 g/dL (12.2-16.2); Lymphocytes # 0.7 K/mm3 (0.7-4.5); Lymphocytes % 9.4 % (10-50); Mean Corpuscular HGB Conc 32.7 g/dL (31.8-35.4); Mean Corpuscular Hemoglobin 30.1 pg (27.0-31.2); Mean Corpuscular Volume 92.2 fl (81-99); Mean Platelet Volume 10.4 fl (7.4-10.4); Monocytes # 0.8 K/mm3 (0.1-1.0); Monocytes % 10.9 % (1.7-9.3); Neutrophils # 5.9 K/mm3 (1.8-7.8); Neutrophils % 78.1 % (37.0-80.0); Platelet Count 192 K/mm3 (142-424); Red Blood Count 4.48 M/mm3 (4.20-5.40); Red Cell Distribution Width 12.4 % (11.5-17.5); White Blood Count 7.5 K/mm3 (4.8-10.8)
[2024-04-29 14:10] LABS: Chloride 101 mmol/L (98-107)
[2024-04-29 14:11] LABS: Potassium 4.4 mmoL/L (3.5-5.1); Sodium 138 mmol/L (136-145)
[2024-04-29 14:13] LABS: Blood Urea Nitrogen 18 mg/dl (7-17); Creatinine Clearance Estimated 37 mL/min (50-200); Estimated Glomerular Filt Rate 79 ml/min (>60); GFR (African American) 96 ML/MIN (>60)
--- NOTE | 2024-04-29 14:13 | CT_ITS ---
FINAL REPORT TECHNIQUE: Axial CT images were performed through the head. Coronal reformatted images were submitted. This study was performed with techniques to keep radiation doses as low as reasonably achievable (ALARA). Individualized dose reduction techniques using automated exposure control or adjustment of mA and/or kV according to the patient's size were employed. CLINICAL HISTORY: AMS, confusion COMPARISON: 10/06/2020 FINDINGS: There is mild atrophy. Again noted is encephalomalacia within the posterior lateral right temporal lobes, well seen on images 101-128. There is patchy decreased attenuation throughout the deep white matter bilaterally. There is no evidence of hemorrhage. There is no mass or edema identified. There is no abnormal extra-axial fluid seen. The paranasal sinuses are well aerated. 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 Diffuse changes of chronic ischemia. Reviewed, Interpreted and Dictated by Sameer Washington MD Transcribed by Nkechi Campbell Authenticated and [facility]
[2024-04-29 14:14] LABS: Anion Gap 12.4 mEq/L (5-15); Calcium 10.2 mg/dl (8.4-10.2); Carbon Dioxide 29 mmol/L (22.0-30.0); Glucose 79 mg/dl (74-100)
[2024-04-29 14:43] LABS: Procalcitonin 0.096 ng/mL (0.0-2.0)
[2024-04-29 15:02] LABS: NT Pro Brain Natriuretic Pep. 3320 pg/mL (0-450)
[2024-04-29 15:03] LABS: Troponin I 0.04 ng/ml (0.00-0.034)
--- NOTE | 2024-04-29 16:27 | PC.NURSE ---
Aox 1 with confusion, refused meds and md. aware, zero iv, on RA, from [place], family has called several times today for updates.
--- NOTE | 2024-04-29 18:08 | P.PN_ITS ---
Subjective *Date: 04/29/24 *Time: 18:08 Exam Data for Last 24 hours Vital signs and Labs for Last 24 Hours: Temp Pulse Resp BP Pulse Ox O2 Del Method O2 Flow Rate 98.2 F 85 16 143/58 H 94 L Room Air 1 04/29/24 16:00 04/29/24 16:00 04/29/24 11:53 04/29/24 16:00 04/29/24 16:00 04/29/24 16:18 04/29/24 11:55 Laboratory Results - last 24 hr 04/28/24 16:15: Sodium 135 L, Potassium 4.6, Chloride 103, Carbon Dioxide 21 L, Anion Gap 15.6 H, BUN 13, Creatinine 0.50 L, Estimated Creat Clear 40, Estimated GFR 116, Est GFR ( Amer) 141, Glucose 72 L, Calcium 10.0, Total Bilirubin 1.7 H, AST 43 H, ALT 18, Alkaline Phosphatase 107, Total Protein 6.3, Albumin 4.0, Globulin 2.3, Albumin/Globulin Ratio 1.7, HIV Ag/Ab Combo Qual Negative 04/28/24 19:30: Troponin I 0.02 04/29/24 13:50: WBC 7.5, RBC 4.48, Hgb 13.5, Hct 41.3, MCV 92.2, MCH 30.1, MCHC 32.7, RDW 12.4, Plt Count 192, MPV 10.4, Neut % (Auto) 78.1, Lymph % (Auto) 9.4 L, [place] % (Auto) 10.9 H, Eos % (Auto) 0.8, Baso % (Auto) 0.7, Neut # (Auto) 5.9, Lymph # (Auto) 0.7, [place] # (Auto) 0.8, Eos # (Auto) 0.1, Baso # (Auto) 0.1, Sodium 138, Potassium 4.4, Chloride 101, Carbon Dioxide 29, Anion Gap 12.4, BUN 18 H D, Creatinine 0.70 D, Estimated Creat Clear 37, Estimated GFR 79, Est GFR ( Amer) 96 D, Glucose 79, Calcium 10.2, Troponin I 0.04 H, NT-Pro-B Natriuret Pep 3320 H, Procalcitonin 0.096 I & O for Last 24 hours: Intake & Output 03/11/25 03/12/25 03/13/25 03/14/25 23:59 23:59 23:59 23:59 Intake Total 360 / 360 Output Total 0 / 0 200 / 200 Balance 0 / 120 160 / 160 Weight 64.864 kg 60.373 kg Constitutional Constitutional: no acute distress *Routine HEENT Exam Head: Present normocephalic Eye: Present EOMI and PERRL ENT: Present mucous membranes moist *Routine Neck Exam Neck: Present supple; Absent lymphadenopathy *Routine Respiratory Exam Respiratory: Present CTA bilaterally *Routine Cardiovascular Exam Cardiovascular: Present RRR *Routine Abdominal Exam Abdominal: Present soft and normoactive bowel sounds; Absent tenderness *Routine Extremities Exam Extremities: Absent cyanosis, clubbing or edema *Routine Skin Exam Skin: Present warm; Absent rash *Routine Neurological Exam Neurological: Present alert Assessment and Plan *Assessment and plan (1) Pleural effusion: Status: Acute Category: Medical Code(s): J90 - Pleural effusion, not elsewhere classified (2) Left lower lobe pneumonia: Status: Acute Qualifiers: Pneumonia type: due to unspecified organism Qualified Code(s): J18.9 - Pneumonia, unspecified organism Category: Medical Code(s): J18.9 - Pneumonia, unspecified organism (3) Abdominal pain: Status: Acute Qualifiers: Abdominal location: generalized Qualified Code(s): R10.84 - Generalized abdominal pain Category: Medical Code(s): R10.9 - Unspecified abdominal pain (4) Acute hypoxic respiratory failure: Status: Acute Category: Medical Code(s): J96.01 - Acute respiratory failure with hypoxia Plan Miladis Dupree is a 88-year-old female with a medical history significant for de mentia, anxiety/depression who presented for abdominal and back pain and was admitted for pain management of T12 compression fracture, UTI. Hospital course complicated by HFpEF exacerbation, metabolic encephalopathy, agitation. #Acute metabolic encephalopathy #Dementia #UTI ? UA grossly abnormal, urine culture pending. Head CT showed old infarcts. ? Continue ceftriaxone day 2. ? Follow-up urine culture. ? Patient very confused today, and intermittently delusional. Will resume home brexpiprazole, memantine. ? Continue home memantine, brexpiprazole. ? IV Haldol 3 mg as needed for agitation. #HFpEF exacerbation ? Elevated BNP 3320, CTA chest with pulmonary edema. ? Continue IV Lasix 40 mg daily. ? Follow-up ECHO. #Abdominal pain #Chronic T12 compression fracture #UTI ? Continue UTI treatment as above. ? [place] as needed for pain. #Hypertension #Hyperlipidemia ? Resume home atenolol, atorvastatin. #Anxiety/depression ? Resume home citalopram 10 mg. Full code DVT prophylaxis: Lovenox
[2024-04-29] MEDS: ATORVASTATIN 10MG TABLET 10 MG PO (20:12)
[2024-04-29] MEDS: MEMANTINE 10MG TABLET 10 MG PO (20:12)
[2024-04-29] MEDS: ACETAMINOPHEN 325MG TAB 650 MG PO (20:40)
--- NOTE | 2024-04-29 21:36 | PC.NURSE ---
Addendum entered by Carin Matamoros RN 04/29/24 22:04: Delfina DELUNA was consulted [id number] and notified that the patient is currently resting in bed, but she does not have any IV access to give the newly ordered intravenous Toradol due to previous refusals. However, he stated that the order can be changed to IM if needed. Patient will be allowed to rest at this time to decrease any potential for agitation or further aggravation of her pain. Heat application was satisfactory, for the patient is resting with eyes closed; respirations are even and unlabored and restlessness has ceased at this time. One-on-one observation ongoing. Original Note: Patient has been complaining of significant back pain this shift. Initially, the patient requested to take a mild pain reliever; Tylenol was administered per APR at 20:40. Staff repositioned the patient in bed for comfort to her liking. An extra pillow was placed behind her back. At this time, the patient continued to report back pain ( Tylenol did not help ) and was becoming restless in bed. A makeshift heating pad was provided for the patient to promote additional pain relief. Patient reported satisfaction with the heat application, but she continued to report discomfort. The patient expressed concerns about taking a stronger pain medication and did not want to take the [place]. She does not have an IV access at this time due to previous tendency of removing them and combativeness (however, the patient is overall pleasant, obliging to care, and oriented at this time). Delfina DELUNA was paged at this time for additional interventions.
--- NOTE | 2024-04-30 03:55 | PC.NURSE ---
Patient is alert to herself, but has expressed more orientation to where she is at (did not name the place but is aware of staying in [place] ). She also discussed memories with staff about residing at [place]. A calm and comforting approach was directed towards the patient during every interaction to avoid any sudden onsets of aggression; no combativeness or resistance, despite previous tendencies during this stay, was exhibited this shift. Patient was observed to have eyes closed, respirations even and unlabored on room air, and no apparent distress throughout the night. Upon assessment, the patient stated that she feels better and even obliged to receiving a bed bath this shift. Scheduled medications were administered as appropriately per MAR (no refusals this time, took pills whole). Patient consumed a Starry float at bedtime (Starry soda and ice cream) of which promoted her more happiness. She has been easily reoriented without difficulties this shift. Patient has complained of consistent back pain. Heat application has appeared, based on her verbal report, to have worked wonderfully for her back pain. Staff has also repositioned the patient in bed accordingly. She stood at the bedside once this shift with assistance from staff + use of a walker. Patient tolerated prolonged standing very well, and this also helped relieve pain. Auscultation of her lungs (clear although diminished), heart, and bowel sounds were within normal findings. Patient remains incontinent. Oxygen saturations have remained > 90%; continuous pulse ox remains in place. At this time, the patient is resting in bed without any further complaints. No new needs thus far. Bed alarm on, seizure pads in place (extra safety precaution due to previous agitation episodes). Call light within reach. One-on-one observation ongoing.
[2024-04-30 04:00] VITALS: BP 141/76; PULSE 77; RESP 16; TEMP 36.9; O2SAT 93; BMI 22.0
[2024-04-30] MEDS: HYDROCODONE/APAP 5/325 MG TABLET 1 TAB PO (04:20)
[2024-04-30 07:15] LABS: Basophils % 0.7 % (0.1-2.0); Eosinophils # 0.2 K/mm3 (0.0-0.4); Hematocrit 39.1 % (37.0-47.0); Hemoglobin 12.9 g/dL (12.2-16.2); Lymphocytes # 0.8 K/mm3 (0.7-4.5); Lymphocytes % 13.1 % (10-50); Mean Corpuscular Hemoglobin 29.9 pg (27.0-31.2); Mean Corpuscular Volume 90.7 fl (81-99); Mean Platelet Volume 10.6 fl (7.4-10.4); Monocytes # 0.8 K/mm3 (0.1-1.0); Monocytes % 13.8 % (1.7-9.3); Neutrophils # 4.1 K/mm3 (1.8-7.8); Neutrophils % 69.1 % (37.0-80.0); Platelet Count 178 K/mm3 (142-424); Red Blood Count 4.31 M/mm3 (4.20-5.40); Red Cell Distribution Width 12.3 % (11.5-17.5)
[2024-04-30 07:29] LABS: Anion Gap 6.4 mEq/L (5-15); Blood Urea Nitrogen 22 mg/dl (7-17); Calcium 10.5 mg/dl (8.4-10.2); Carbon Dioxide 32 mmol/L (22.0-30.0); Chloride 100 mmol/L (98-107); Creatinine Clearance Estimated 38 mL/min (50-200); Estimated Glomerular Filt Rate 94 ml/min (>60); GFR (African American) 114 ML/MIN (>60); Glucose 112 mg/dl (74-100); Potassium 3.4 mmoL/L (3.5-5.1); Sodium 135 mmol/L (136-145)
[2024-04-30 07:45] VITALS: BP 151/68; PULSE 70; RESP 17; TEMP 36.4; O2SAT 96
[2024-04-30] MEDS: FUROSEMIDE 40 MG TABLET PO (09:10)
[2024-04-30] MEDS: MEMANTINE 10MG TABLET 10 MG PO (09:11)
[2024-04-30] MEDS: ATENOLOL 50MG TABLET 50 MG PO (09:11)
[2024-04-30] MEDS: CITALOPRAM 10MG TABLET 10 MG PO (09:11)
[2024-04-30] MEDS: levoFLOXacin 500MG TAB 500 MG PO (11:09)
--- NOTE | 2024-04-30 12:03 | P.DS_ITS ---
General Admission date:: 04/28/24 HPI HPI HPI: This is an 88-year-old female who has a past medical history significant for hypertension, TIA, diverticulitis, GERD, and arthrosclerosis who presents from [facility] with a chief complaint of abdominal pain, lower back pain, and difficulty urinating. Due to patient's symptoms, she presented to the emergency room for evaluation. While in the emergency room, CTA of the chest revealed findings compatible with mild congestive heart failure, T12 compression fracture (this is known), CTA of the abdomen pelvis revealed moderate calcification in multiple areas, and CT scan of the abdomen and pelvis was negative for any acute intra-abdominal or intrapelvic process. Patient had an episode of low level of oxygen with oxygen saturation in 88 percentile on room air. Due to these findings, patient has been admitted for further management. During my evaluation of the patient, patient states she has had a 3-4-day history of diffuse abdominal pain. She reports having bowel movements every other day with the aid of stool softeners. She has had some nausea but no vomiting. Patient currently has no abdominal pain during my exam. On further questioning, patient states she has had lower extremity edema in the past and it was post left hip fracture repair. She is currently prescribed Lasix and potassium supplementation and management of the edema. She has no formal history of heart failure. She is currently denying any lightheadedness, dizziness, fever, chills, rigors, cough, shortness of breath, dyspnea, PND, orthopnea, or diarrhea. Her additional chemistries obtained in the emergency room were unremarkable. Hospital Course Hospital Course Hospital Course: Miladis Dupree is a 88-year-old female with a medical history significant for dementia, anxiety/depression who presented for abdominal and back pain and was admitted for pain management of T12 compression fracture, UTI. Hospital course complicated by HFpEF exacerbation, confusion/agitation, constipation. #Acute metabolic encephalopathy #Dementia #UTI ? UA grossly abnormal, urine culture pending. Head CT showed old infarcts. ? Patient was initially very confused, intermittently delusional. Refusing all medications including IV antibiotics. Improved overnight. Brexpiprazole was held during hospital course, can continue if needed. ? At the time of discharge, patient was very pleasant and conversational. ? Continue levofloxacin for 4 more days. Continue memantine. #Abdominal pain #Chronic T12 compression fracture, suspected osteoporosis #Fecal impaction ? Had significant fecal impaction on CT abdomen/pelvis, also revealed T12 compression fracture. ? Given soapsuds enema with hard stool output. Continue soapsuds enema daily until soft stool. ? Recommend MiraLAX daily. ? Discharged with naproxen 5 mg twice daily as needed for T12 compression fracture. Concerning for osteoporosis, started alendronate 70 mg weekly, monitor renal function. Can be started at the nursing facility. #HFpEF exacerbation ? Elevated BNP 3320, CTA chest with pulmonary edema. ? Increase Lasix to 40 mg daily. On room air. #Hypertension #Hyperlipidemia ? Resume home atenolol, atorvastatin. #Anxiety/depression ? Resume home citalopram 10 mg. Total time spent on discharge: 32 minutes on chart review, counseling, documentation, and direct care with patient. Exam Data for Last 24 hours Vital signs and Labs for Last 24 Hours: Temp Pulse Resp BP Pulse Ox O2 Del Method O2 Flow Rate 97.6 F 70 17 151/68 H 96 Room Air 1 04/30/24 07:45 04/30/24 07:45 04/30/24 07:45 04/30/24 07:45 04/30/24 07:45 04/30/24 09:00 04/29/24 11:55 Laboratory Results - last 24 hr 04/29/24 13:50: WBC 7.5, RBC 4.48, Hgb 13.5, Hct 41.3, MCV 92.2, MCH 30.1, MCHC 32.7, RDW 12.4, Plt Count 192, MPV 10.4, Neut % (Auto) 78.1, Lymph % (Auto) 9.4 L, [place] % (Auto) 10.9 H, Eos % (Auto) 0.8, Baso % (Auto) 0.7, Neut # (Auto) 5.9, Lymph # (Auto) 0.7, [place] # (Auto) 0.8, Eos # (Auto) 0.1, Baso # (Auto) 0.1, Sodium 138, Potassium 4.4, Chloride 101, Carbon Dioxide 29, Anion Gap 12.4, BUN 18 H D, Creatinine 0.70 D, Estimated Creat Clear 37, Estimated GFR 79, Est GFR ( Amer) 96 D, Glucose 79, Calcium 10.2, Troponin I 0.04 H, NT-Pro-B Natriuret Pep 3320 H, Procalcitonin 0.096 04/30/24 06:20: WBC 6.0, RBC 4.31, Hgb 12.9, Hct 39.1, MCV 90.7, MCH 29.9, MCHC 33.0, RDW 12.3, Plt Count 178, MPV 10.6 H, Neut % (Auto) 69.1, Lymph % (Auto) 13.1, [place] % (Auto) 13.8 H, Eos % (Auto) 3.0, Baso % (Auto) 0.7, Neut # (Auto) 4.1, Lymph # (Auto) 0.8, [place] # (Auto) 0.8, Eos # (Auto) 0.2, Baso # (Auto) 0.0, Sodium 135 L, Potassium 3.4 L D, Chloride 100, Carbon Dioxide 32 H, Anion Gap 6.4, BUN 22 H, Creatinine 0.60, Estimated Creat Clear 38, Estimated GFR 94, Est GFR ( Amer) 114, Glucose 112 H D, Calcium 10.5 H I & O for Last 24 hours: Intake & Output 04/27/24 04/28/24 04/29/24 04/30/24 23:59 23:59 23:59 23:59 Intake Total 360 / 922 1252 / 1252 Output Total 0 / 0 200 / 200 0 / 0 Balance 0 / 120 160 / 722 1252 / 1252 Weight 64.864 kg 60.373 kg 62.233 kg Constitutional Constitutional: no acute distress *Routine HEENT Exam Head: Present normocephalic Eye: Present EOMI and PERRL ENT: Present mucous membranes moist *Routine Neck Exam Neck: Present supple; Absent lymphadenopathy *Routine Respiratory Exam Respiratory: Present CTA bilaterally *Routine Cardiovascular Exam Cardiovascular: Present RRR *Routine Abdominal Exam Abdominal: Present soft and normoactive bowel sounds; Absent tenderness *Routine Extremities Exam Extremities: Absent cyanosis, clubbing or edema *Routine Skin Exam Skin: Present warm; Absent rash *Routine Neurological Exam Neurological: Present alert Results Data Completed and Pending Labs on day of discharge: Labs from last 24 hours 04/30/24 04/29/24 06:20 13:50 WBC 6.0 7.5 RBC 4.31 4.48 Hgb 12.9 13.5 Hct 39.1 41.3 MCV 90.7 92.2 MCH 29.9 30.1 MCHC 33.0 32.7 RDW 12.3 12.4 Plt Count 178 192 MPV 10.6 H 10.4 Neut % (Auto) 69.1 78.1 Lymph % (Auto) 13.1 9.4 L [place] % (Auto) 13.8 H 10.9 H Eos % (Auto) 3.0 0.8 Baso % (Auto) 0.7 0.7 Neut # (Auto) 4.1 5.9 Lymph # (Auto) 0.8 0.7 [place] # (Auto) 0.8 0.8 Eos # (Auto) 0.2 0.1 Baso # (Auto) 0.0 0.1 Sodium 135 L 138 Potassium 3.4 L D 4.4 Chloride 100 101 Carbon Dioxide 32 H 29 Anion Gap 6.4 12.4 BUN 22 H 18 H D Creatinine 0.60 0.70 D Estimated Creat Clear 38 37 Estimated GFR 94 79 Est GFR ( Amer) 114 96 D Glucose 112 H D 79 Calcium 10.5 H 10.2 Troponin I 0.04 H NT-Pro-B Natriuret Pep 3320 H Procalcitonin 0.096 DS: Diagnosis Discharge Diagnosis (1) Pleural effusion: Status: Acute Code(s): J90 - Pleural effusion, not elsewhere classified (2) Left lower lobe pneumonia: Status: Acute Code(s): J18.9 - Pneumonia, unspecified organism Qualifiers: Pneumonia type: due to unspecified organism Qualified Code(s): J18.9 - Pneumonia, unspecified organism (3) Abdominal pain: Status: Acute Code(s): R10.9 - Unspecified abdominal pain Qualifiers: Abdominal location: generalized Qualified Code(s): R10.84 - Generalized abdominal pain (4) Acute hypoxic respiratory failure: Status: Acute Code(s): J96.01 - Acute respiratory failure with hypoxia Meds Home Medications and Allergies Home Medications ?Medication ?Instructions ?Recorded ?Confirmed ?Type famotidine 40 mg tablet 40 mg PO DAILY 10/06/20 04/29/24 History atenolol 50 mg tablet 50 mg PO DAILY 04/28/24 04/29/24 History atorvastatin 10 mg tablet 10 mg PO HS 04/28/24 04/29/24 History magnesium hydroxide 400 mg/5 mL 30 ml PO DAILYP PRN Constipation 04/28/24 04/29/24 History oral suspension (Milk of Magnesia) potassium chloride 10 mEq 10 meq PO DAILY 04/28/24 04/29/24 History capsule,extended release brexpiprazole 2 mg tablet (Rexulti) 2 mg PO DAILY 04/29/24 04/29/24 History escitalopram oxalate 5 mg tablet 5 mg PO DAILY 04/29/24 04/29/24 History fluticasone propionate 50 2 spray intranasal DAILY 04/29/24 04/29/24 History mcg/actuation nasal spray,suspension memantine 10 mg tablet 10 mg PO BID 04/29/24 04/29/24 History alendronate 70 mg tablet 70 mg PO WEEKLY #30 tabs 04/30/24 Rx furosemide 20 mg tablet 40 mg (2 x 20 mg) PO DAILY 30 days 04/30/24 04/29/24 Rx #0 tabs levofloxacin 500 mg tablet 500 mg PO 1100 4 days #4 tabs 04/30/24 Rx naproxen 500 mg tablet 500 mg PO BID PRN pain #30 tabs 04/30/24 Rx spironolactone 25 mg tablet 25 mg PO DAILY #30 tabs 04/30/24 Rx New Prescriptions to Start Prescriptions: alendronate Jaida,Justice levofloxacin Jaida,Justice naproxen Jaida,Justice spironolactone Jaida,Justice Allergies Allergy/AdvReac Type Severity Reaction Status Date / Time No Known Allergies Allergy Verified 07/09/22 13:09 Discharge Plan Disposition Patient Disposition: [facility] Condition: Fair Discharge Order Discharge Orders: Discharge Order (Routine); Ordered 04/30/24 Ordered By: Justice Sena Follow up Plan Follow up with: Sri Galeana APRN [Nurse Practitioner] - 05/02/24 (please call for appointment) Prescriptions/Medication Reconciliation: New levofloxacin 500 mg Tablet 500 mg PO 1100 4 Days Qty: 4 0RF naproxen 500 mg tablet 500 mg PO BID PRN (Reason: pain) Qty: 30 0RF spironolactone 25 mg tablet 25 mg PO DAILY Qty: 30 0RF alendronate 70 mg tablet 70 mg PO WEEKLY Qty: 30 0RF Continued famotidine 40 MG tablet 40 mg PO DAILY potassium chloride 10 mEq capsule, extended release 10 meq PO DAILY atorvastatin 10 mg tablet 10 mg PO HS magnesium hydroxide [Milk of Magnesia] 400 mg/5 mL suspension 30 ml PO DAILYP PRN (Reason: Constipation) atenolol 50 mg tablet 50 mg PO DAILY memantine 10 mg tablet 10 mg PO BID fluticasone propionate 50 mcg/actuation spray,suspension 2 spray intranasal DAILY escitalopram oxalate 5 mg tablet 5 mg PO DAILY Changed furosemide 20 mg tablet 40 mg PO DAILY 30 Days Qty: 0 0RF Held Rexulti 2 mg Tablet 2 mg PO DAILY Hold Instructions: Resume on 05/14/24. Patient did well without this medic ation. Can consider restarting if needed. Problem Reconciliation Problems Reviewed?: Yes Patient Discharge Instructions Patient Instructions: DI for Pneumonia -- Adult, DI for Respiratory Failure Print Language: Chinese Providers Primary Care Provider: Ryan Allison Admit Provider: Justice Sena Attending Provider: Justice Sena
[2024-04-30] MEDS: POLYETHYLENE GLYCOL 3350 17 GM PACKET PO (13:34)
[2024-04-30 14:05] LABS: Troponin I 0.02 ng/ml (0.00-0.034)
[2024-04-30 14:24] LABS: Thyroid Stimulating Hormone 2.29 uIU/mL (0.465-4.68)
--- NOTE | 2024-04-30 14:30 | PC.NURSE ---
[facility]
[2024-04-30 14:42] LABS: Vitamin B12 382 pg/mL (239-931)
== END 2024-04-30 14:52 ==
LOC: ER 19:16 → 2ND 22:12
PROVIDERS: Nurse Practitioner; Nurse Practitioner Family; Admitting Provider Student in an Organized Health Care Education/Training Program; Emergency Provider Emergency Medicine; PCP Internal Medicine Adolescent Medicine; Visit Provider Student in an Organized Health Care Education/Training Program
DX: J96.01 Acute respiratory failure with hypoxia (principal); G93.41 Metabolic encephalopathy; R10.84 Generalized abdominal pain; J18.9 Pneumonia, unspecified organism; J90 Pleural effusion, not elsewhere classified; K21.9 Gastro-esophageal reflux disease without esophagitis; F03.911 Unspecified dementia, unspecified severity, with agitation; N39.0 Urinary tract infection, site not specified; K56.41 Fecal impaction; M48.54XA Collapsed vertebra, not elsewhere classified, thoracic region, initial encounter for fracture; I11.0 Hypertensive heart disease with heart failure; I50.33 Acute on chronic diastolic (congestive) heart failure; F32.A Depression, unspecified; F41.9 Anxiety disorder, unspecified; I70.90 Unspecified atherosclerosis; E78.5 Hyperlipidemia, unspecified; Z86.73 Personal history of transient ischemic attack (TIA), and cerebral infarction without residual deficits; Z79.899 Other long term (current) drug therapy; Z87.19 Personal history of other diseases of the digestive system; Z91.198 Patient's noncompliance with other medical treatment and regimen for other reason
CPT/HCPCS: 36415; 70450; 71045; 71275; 74174; 74177; 80048; 80053; 81001; 82607; 82746; 83605; 83880; 84145; 84443; 84484; 85025; 86803; 87389; 93306; 99291; G0378; J0692; J1940; J2060; J2270; J2405; J3370; Q9967